=== PATIENT | female | born 1980 | race Caucasian/White ===

== ENCOUNTER → 2017-09-03 13:09 | Outpatient (CLI) | payer OTHER, SELFPAY ==
--- NOTE | 2017-09-03 13:14 | CT_ITS ---
STUDY: CT ABDOMEN WITH AND WITHOUT CONTRAST REASON FOR EXAM: Female, 36 years old. Elevated cortisol, hypertension, tachycardia, intermittent fevers, ? adrenal adenoma vs pheochromocytoma. Uncontrolled hypertension, prior cholecystectomy, lithotripsy. Adrenal protocol RADIATION DOSAGE (If Supplied By Facility): CTDIvol = ( 29.79 ) mGy, DLP = ( 2206.57 ) mGycm TECHNIQUE: Transaxial images were obtained pre and post I.V. administration of 100mL ml of Isovue 300, and no oral contrast. Sagittal and coronal images were reconstructed. Imaging was performed without, with and with delayed images Individualized dose optimization techniques were used for this CT. COMPARISON: Prior comparison studies are not available for review at this time. A prior CT abdomen and pelvis report February 04, 2010 describes normal adrenal glands. FINDINGS: The visualized lung bases are unremarkable. The visualized portions of the heart are within normal limits. Normal liver. Normal gallbladder and extrahepatic biliary system. Normal spleen. Normal pancreas. Normal bilateral adrenal glands. The adrenal glands are normal in size. There is no evidence of an adrenal nodule Normal right kidney. Normal left kidney. There is a punctate nonobstructing calculus associated with the mid to lower pole of the left kidney measuring approximately 2 mm. Although the study was not specifically performed to evaluate the renal arteries, on the images presented the renal arteries show no sign of stenosis and no irregularity to suggest fibromuscular dysplasia. Normal visualized stomach. Normal small intestine. Normal colon. There is non-visualization of the appendix. Normal abdominal aorta. Normal inferior vena cava. Normal retroperitoneum. Normal abdominal wall. Normal osseous structures. CT/Abdomen W/WO IV Contrast IMPRESSION: Normal unenhanced and enhanced CT of the abdomen. Normal appearance of adrenal glands. No retroperitoneal mass or other mass suspect for a pheochromocytoma. In the patient with biochemistry for pheochromocytoma MRI could be performed in an attempt to identify potential pheochromocytoma. The imaging should be obtained from the domes of the diaphragm all the way through the urinary bladder. They are characteristically solid hypervascular masses with high signal intensity on T2 images but a wide spectrum of imaging appearances may be encountered. 2 mm nonobstructing left renal calculus noted. Electronically Signed: Shaila Uriarte MD at 22:37 EDT Tel , Service support ,
== END ==
PROVIDERS: Family Provider Family Medicine; PCP Family Medicine; Visit Provider Family Medicine
DX: R00.0 Tachycardia, unspecified (principal); R03.0 Elevated blood-pressure reading, without diagnosis of hypertension; E27.0 Other adrenocortical overactivity
CPT/HCPCS: 74170; Q9967

== ENCOUNTER → 2017-09-07 08:02 | Outpatient (CLI) | payer OTHER, SELFPAY ==
[2017-09-07 12:13] LABS: Cholesterol 205 mg/dL (200); High Density Lipoprotein 47 mg/dL; Prolactin 5.9 ng/mL; Triglycerides 177 mg/dL; Very Low Density Lipoprotein 35 mg/dL (5-40)
[2017-09-07 12:18] LABS: Hemoglobin A1c 5.3 % (4.2-6.3)
[2017-09-08 09:10] LABS: Insulin 26.6 mU/L (2.6-37.6)
== END ==
PROVIDERS: Family Provider Family Medicine; PCP Family Medicine; Visit Provider Family Medicine
DX: Z00.00 Encounter for general adult medical examination without abnormal findings (principal); R73.01 Impaired fasting glucose; R51 Headache; E27.0 Other adrenocortical overactivity
CPT/HCPCS: 36415; 80061; 82533; 83036; 83525; 84146

== ENCOUNTER 2018-06-14 23:20 | Emergency (ER) | payer OTHER, SELFPAY ==
[2018-06-14 23:20] VITALS: BP 158/97; PULSE 99; RESP 18; TEMP 36.9; O2SAT 100; BMI 31.9
[2018-06-14 23:31] VITALS: PULSE 98; RESP 14
--- NOTE | 2018-06-14 23:31 | EKG12_ITS ---
Test Reason : PALPS Blood Pressure : / mmHG Vent. Rate : 094 BPM Atrial Rate : 094 BPM P-R Int : 176 ms QRS Dur : 098 ms QT Int : 368 ms P-R-T Axes : 059 -21 031 degrees QTc Int : 460 ms Normal sinus rhythm Possible Left atrial enlargement Incomplete right bundle branch block Borderline ECG Confirmed by ANGEL CARLOS, PARAMJIT ([id number]), material expeditor ALCON HAMILTON ([id number]) on 06/16/2018 1:57:03 PM Referred By: MAMADOU Confirmed By:PARAMJIT ORTIZ MD
--- NOTE | 2018-06-14 23:35 | RAD_ITS ---
STUDY: X-RAY CHEST REASON FOR EXAM: Female, 37 years old. Palpitations TECHNIQUE: 1 view COMPARISON: 08/24/2013 FINDINGS: The lungs are clear and expanded. There is no demonstrated pleural abnormality. Normal size heart. Normal mediastinum and trino. Normal visualized pulmonary arteries. Normal visualized aortic arch and descending thoracic aorta. Normal visualized thoracic spine. Normal visualized ribs, clavicles, and shoulders. There is no demonstrated abnormality of the visualized soft tissue structures of the upper abdomen. RAD/Chest 1 View (Portable) IMPRESSION: Normal x-ray examination of the chest. No acute findings in the lungs Electronically Signed: London Scanlon MD at 0:57 EST Tel , Service support ,
--- NOTE | 2018-06-14 23:45 | EKG12_ITS ---
Test Reason : Blood Pressure : / mmHG Vent. Rate : 106 BPM Atrial Rate : 106 BPM P-R Int : 168 ms QRS Dur : 094 ms QT Int : 356 ms P-R-T Axes : 055 -31 032 degrees QTc Int : 472 ms Sinus tachycardia Possible Left atrial enlargement Left axis deviation Abnormal ECG Confirmed by ANGEL CARLOS, PARAMJIT ([id number]), book editor ALCON HAMILTON ([id number]) on 06/16/2018 2:04:02 PM Referred By: MAMADOU Confirmed By:PARAMJIT ORTIZ MD
[2018-06-15] MEDS: 0.9% Normal Saline 1,000 ML 1000 ML IV (00:05)
[2018-06-15 00:10] LABS: Absolute Lymphocyte Count 4.22 X10^3/ul (0.83-4.51); Basophil# 0.02 X10^3/uL; Basophil% 0.1 % (0-1); Eosinophil# 0.29 X10^3/uL; Eosinophils% 2.2 % (0-5); Hematocrit 40.8 % (37-47); Hemoglobin 14.3 g/dl (12.0-15.0); Lymphocyte # 4.22 X10^3/ul (4.0); Lymphocyte % 31.5 % (19-41); Mean Corpuscular Volume 85.7 fL (81-99); Mean Platelet Vol. 9.1 fl (6.2-12.0); Monocyte# 0.79 X10^3/uL; Monocyte% 5.9 % (0-10); Neutrophil # 8.02 X10^3/uL (2.7-7.7); Neutrophil % 59.9 % (47-70); POSITIVE COUNT NO; POSITIVE DIFFERENTIAL NO; POSITIVE MORPHOLOGY NO; Platelet Count 284 K/mm3 (150-450); RBC Distribution Width CV 13.1 % (11.6-14.6); RBC Distribution Width SD 40.5 fl (35.1-43.9); Red Blood Count 4.76 M/mm3 (4.2-5.4); White Blood Count 13.4 K/mm3 (4.4-11.0)
[2018-06-15 00:22] LABS: D-Dimer Quantitative (DVT/PE) < 0.27 FEU/ug/m (0.27-0.49)
[2018-06-15 00:33] LABS: Anion Gap 10 (5-15); BUN 16 mg/dL (7-18); BUN/Creat Ratio 24.2 RATIO (10-20); Calcium,Total 8.8 mg/dL (8.5-10.1); Chloride 106 mmol/L (98-107); Creatinine, Serum 0.66 mg/dL (0.55-1.02); EST Glomerular Filtration Rate 106 mL/min (>60); Est Glom Filt Rate - Afr Amer 128 mL/min (>60); Estimated Creatinine Clearance 115.44 ml/min; Glucose 91 mg/dL (74-106); Magnesium 1.7 mg/dL (1.6-2.6); Potassium 3.6 mmol/L (3.5-5.1); Sodium Level 139 mmol/L (136-145); Thyroid Stim Hormone (TSH) 2.66 uIU/mL (0.358-3.74)
[2018-06-15 00:36] VITALS: BP 147/93; PULSE 98; RESP 16; O2SAT 97
[2018-06-15 00:48] LABS: Pregnancy, Serum, hCG Quali. NEGATIVE Negative (0-9 Nonpreg)
--- NOTE | 2018-06-15 01:33 | ED.VISSUMM ---
- ER Visit Summary Date of Service: 06/15/18 Chief Complaint: Palpitations History of Present Illness: The patient is a [address] Macario. Reports that approximately 1 hour ago while at rest she had the onset of palpitations. States that she checked her blood pressure on the machine she has at home it was 160/105. She states that her heart rate was 165 at max. She reports the palpitations as an irregular beat. States that she did not have any chest pain. She felt very lightheaded as though she is going to pass out. She was nauseated with this. She denies any vomiting. She was diaphoretic and short of breath. Patient reports that she has had this multiple times in the past. They have not been unable to find an etiology of this. Physical Examination: Vitals: Stable. Afebrile. General: Well-nourished and well-developed. Head: Normocephalic atraumatic. Neck: Supple, no lymphadenopathy. No JVD. Nontender. Cardiovascular: Regular rate and rhythm. No murmurs. Respiratory: No respiratory distress. Clear to auscultation bilaterally. Abdominal: Soft, nontender, nondistended, normal bowel sounds. No guarding, rebound, or peritoneal signs. Back: Nontender. Extremities: Nontender, no edema. Skin: Normal color, no rash. Neurologic: Alert and oriented ?3. Cranial nerves II through XII are intact. Normal strength and sensation. Psych: Normal affect. Test Results: EKG is sinus at [address] changes. There is no old EKG for comparison. Patient had an episode of palpitations emergency department. Her repeat EKG is sinus tachycardia 106 with no ischemic changes. Troponin is negative. D-dimer is negative. test is negative. Chem-7 is more for BUN/creatinine ratio 24.2. CBC is more for white count 13.4 with normal differential. TSH is 2.66. Magnesium is 1.7. Chest x-ray is normal. Emergency Department Course and Treatment: Patient is resting comfortably in emerge department. She did have an episode of palpitations and on the monitor she was in sinus tachycardia with a rate at highest of 130s. However, when she is resting her heart rate is in the 80s. Treatment Plan: I had a prolonged discussion with patient about her symptoms. I did discuss the fact that if her heart rate was in the 160s that she may have had an episode of paroxysmal atrial fibrillation. However, she is in sinus rhythm now and I do not feel that admission to the hospital is indicated. She will be discharged instructions to follow-up Dr. Macario and Dr. Wilburn as soon as possible. She instructed to return to emerge department for any chest pain or worsening palpitations. Disposition: To home in improved and stable condition. Impression: 1. Palpitations. 2. Sinus tachycardia. This note was generated with [employer] dictation software. It may contain incorrect words, spelling, and punctuation that were not noted in review of the chart prior to signing ED Disposition - Plan for ED Patient: Disposition: Home or Assisted Living Chief Complaint: Palpitations Instructions: ED Palpitations Referrals: Rodo Macario DO [Primary Care Provider] - As soon as possible Murtaza Ramos MD [STAFF PHYSICIAN] - As soon as possible
[2018-06-15 01:38] VITALS: BP 142/101; PULSE 85; RESP 14; O2SAT 95
== END 2018-06-15 01:41 | disposition home or self-care (01) ==
PROVIDERS: Emergency Provider Emergency Medicine; Family Provider Family Medicine; PCP Family Medicine
DX: R00.2 Palpitations (principal); R00.0 Tachycardia, unspecified; R42 Dizziness and giddiness; R11.0 Nausea; R61 Generalized hyperhidrosis; R06.00 Dyspnea, unspecified; R51 Headache; F41.9 Anxiety disorder, unspecified; F32.9 Major depressive disorder, single episode, unspecified; M79.7 Fibromyalgia; G89.4 Chronic pain syndrome; E28.2 Polycystic ovarian syndrome; Z87.442 Personal history of urinary calculi; F17.200 Nicotine dependence, unspecified, uncomplicated
CPT/HCPCS: 71045; 80048; 83735; 84443; 84484; 84703; 85025; 85379; 93005; 96360; 96361; 99284; J7030

== ENCOUNTER → 2018-06-16 13:45 | Outpatient (CLI) | payer OTHER, SELFPAY ==
[2018-06-14 23:20] VITALS: BMI 31.9
--- NOTE | 2018-06-16 13:48 | ECHOD_ITS ---
Reason For Study: palpitations Procedure This was a 2D Doppler, Color Flow transthoracic echocardiogram. The study was technically difficult. Due to scar tissue from breast reduction. Contrast injection was performed. Exam performed in department. Left Ventricle Normal LV size. Left ventricular systolic function is normal. The estimated ejection fraction is 70 %. Transmitral doppler flow suggestive of impaired relaxation of left ventricle. No regional wall motion abnormalities noted. Right Ventricle Normal RV size. Normal systolic function. Atria Normal left atrium. Normal right atrium. No doppler evidence for ASD. Mitral Valve There is no mitral annular calcification. Normal mitral valve. Tricuspid Valve Normal tricuspid valve. Aortic Valve The aortic valve is not well visualized. Pulmonic Valve The pulmonic valve is not well visualized. Trivial pulmonic valve insufficiency. Great Vessels Normal sized aortic root. Pericardium/Pleural No pericardial effusion. Medication 22 gauge I.V. with prn adaptor inserted into left arm. Diluted definity 3.0ml given slow IV push to enhance endocardial definition. MMode/2D Measurements & Calculations LVIDd: 3.6 cm IVSd: 1.3 cm Ao root diam: 3.3 cm LVIDs: 2.3 cm LVPWd: 0.98 cm LA dimension: 3.0 cm RVDd: 2.7 cm FS: 35.6 % LAV(MOD-bp): 50.5 ml LA A4 area: 15.3 cm2 RA A4 area: 11.3 cm2 LAV(MOD-bp) Indexed: 24.2 ml/m2 LAV(MOD-sp2): 50.5 ml LAV(MOD-sp4): 43.4 ml Time Measurements MV dec time: 0.21 sec Doppler Measurements & Calculations MV E max tommy: 79.1 cm/sec Lat Peak E' Tommy: 7.9 cm/sec Med Peak E' Tommy: 8.4 cm/sec MV A max tommy: 92.4 cm/sec E/E' lat: 10.0 E/E' med: 9.4 MV E/A: 0.86 Ao V2 max: 159.1 cm/sec LV V1 max: 129.8 cm/sec PA V2 max: 105.2 cm/sec Ao max P.1 mmHg LV V1 max P.8 mmHg PI dec slope: 183.8 cm/sec2 Interpretation Summary The study was technically difficult. Contrast injection was performed. Left ventricular systolic function is normal. The estimated ejection fraction is 70 %. Trivial pulmonic valve insufficiency. Transmitral doppler flow suggestive of impaired relaxation of left ventricle Ordering Physician: Rodo Macario Referring Physician: Rodo Macario Performed By: Alina Nick, ELLE, RVT
== END ==
PROVIDERS: Family Provider Family Medicine; PCP Family Medicine; Referring Provider Family Medicine; Visit Provider Family Medicine
DX: R00.0 Tachycardia, unspecified (principal); R00.2 Palpitations
CPT/HCPCS: 93306; Q9957; A4216; C8929

== ENCOUNTER 2018-06-21 01:44 | Observation (INO) | payer OTHER, SELFPAY ==
[2018-06-21] VITALS (10 sets, daily range): BP systolic 136–172; BP diastolic 74–118; PULSE 87–115; RESP 14–22; TEMP 36.7–36.9; O2SAT 93–98; BMI 32.0; BMI 31.8
--- NOTE | 2018-06-21 01:58 | EKG12_ITS ---
Test Reason : HYPERTENSION Blood Pressure : / mmHG Vent. Rate : 094 BPM Atrial Rate : 094 BPM P-R Int : 150 ms QRS Dur : 098 ms QT Int : 382 ms P-R-T Axes : 059 -21 017 degrees QTc Int : 477 ms Normal sinus rhythm Leftward axis Poor R wave progression Confirmed by ANGEL CARLOS, PARAMJIT ([id number]), manager editorial ALCON HAMILTON ([id number]) on 06/22/2018 3:28:59 PM Referred By: Rodo Macario Confirmed By:PARAMJIT ORTIZ MD
--- NOTE | 2018-06-21 01:58 | CT_ITS ---
HISTORY: PT STATED HYPERTENSION AND TACHYCARDIA, FEARS SHE MAY HAVE A TUMOR TECHNIQUE: Multiple axial images were obtained of the brain without intravenous contrast. A radiation dose optimization technique was used for this scan. IV Contrast dosage and agent: None. COMPARISON: None FINDINGS: Normal ventricles. Normal rincon-white matter differentiation. No intracranial mass, hemorrhage, or acute intracranial disease. Posterior fossa structures are unremarkable. No suspicious extra-axial fluid collection. Mild mucosal thickening and mild opacification of the ethmoid air cells, primarily anterior ethmoids and left sphenoid minor mucosal thickening The mastoids and middle ear cavities appear clear. CT/Brain/Head without Contrast IMPRESSION: 1. Normal CT brain without contrast. 2. Mild paranasal sinus disease. Individualized dose optimization techniques were used for this CT. at 0307 Reported and signed by: Jaswinder Chino MD Electronically Signed: Jaswinder Chino, at 3:06 EST Tel , Service support ,
[2018-06-21 02:15] LABS: Bacteria 0 SEEN /hpf (None Seen); Color, Urine Yellow (Yellow); Glucose, Dipstick Normal (Normal); Ketone-Dipstick 50 mg/dl (Negative); Leukocyte Esterase-Dipstick Negative /ul (Negative); Mucous, Urine 0 SEEN /hpf (<or=2+); Nitrite-Dipstick Negative (Negative); Occult Blood-Urine Negative /ul (Negative); Protein-Dipstick Negative (Negative); Red Blood Cells-Urine 0 SEEN /hpf (0-5); Squamous Epithelial Cells - UA 0 SEEN /hpf (5-10); Urine Bilirubin Dipstick Negative (Negative); Urine Clarity Clear (Clear); Urine Urobilinogen Normal (Normal); White Blood Cells 0 SEEN /hpf (0-5)
[2018-06-21 02:16] LABS: Absolute Lymphocyte Count 4.53 X10^3/ul (0.83-4.51); Absolute Neutrophil Count 7.2 X10^3/uL (2.0-7.7); Basophil# 0.03 X10^3/uL; Basophil% 0.2 % (0-1); Eosinophil# 0.25 X10^3/uL; Eosinophils% 1.9 % (0-5); Hematocrit 42.3 % (37-47); Hemoglobin 14.7 g/dl (12.0-15.0); Lymphocyte # 4.53 X10^3/ul (4.0); Lymphocyte % 34.2 % (19-41); Mean Corp Hgb Conc 34.8 g/gl (32-36); Mean Corpuscular Hgb 30.1 pg (27.0-32.0); Mean Corpuscular Volume 86.7 fL (81-99); Mean Platelet Vol. 9.2 fl (6.2-12.0); Monocyte# 1.22 X10^3/uL; Monocyte% 9.2 % (0-10); Neutrophil # 7.16 X10^3/uL (2.7-7.7); Neutrophil % 54.2 % (47-70); Platelet Count 298 K/mm3 (150-450); RBC Distribution Width CV 13.1 % (11.6-14.6); RBC Distribution Width SD 41.8 fl (35.1-43.9); Red Blood Count 4.88 M/mm3 (4.2-5.4); White Blood Count 13.2 K/mm3 (4.4-11.0)
[2018-06-21 02:17] LABS: POSITIVE COUNT NO; POSITIVE DIFFERENTIAL NO; POSITIVE MORPHOLOGY NO
--- NOTE | 2018-06-21 02:17 | ED.VISSUMM ---
- ER Visit Summary Date of Service: 06/21/18 Chief Complaint: High blood pressure, heart racing, chest pain History of Present Illness: The patient is a 37 F presents to the emergency department multiple complaints. The patient is otherwise healthy. She does have a history of chronic pain disorder and does take medication for that. She states over the past few weeks, she has been having these bouts where she gets acutely flushed, she will be lightheaded, her heart will be racing, and she feels as if she is going to pass out. She states that she will take her blood pressure, and it will be markedly elevated in the 170 systolic. She states that she is also taken her heart rate and it has been 150-160. The patient was actually seen here on the second of this month. At that time, she had a rather negative workup. She has been undergoing outpatient workup for questionable pheochromocytoma. She had an echo done yesterday. She is scheduled for Holter monitor. She states when the symptoms come, they only last about 30 seconds to a minute, but she states she does feel like she is going to pass out. Physical Examination: Vital signs reviewed General: Well-nourished, well-developed Head: Normocephalic, atraumatic Eyes: Pupils equal and reactive, extraocular muscles intact Neck, supple, no lymphadenopathy Heart: Regular rate and rhythm Respiratory: No distress, clear bilaterally Abdomen: Soft, nontender, nondistended, no peritoneal signs Back: Nontender Extremities: Nontender, no edema, no cords Skin: Normal color no rash Neuro: Alert and oriented, no focal or lateralizing deficits Test Results: [] Emergency Department Course and Treatment: The patient will have intermittent swings where she becomes acutely tachycardic and hypertensive. This does seem very consistent with pheochromocytoma. She will get flushed and have heart rates that will race into the 150s. It does appear to be a sinus rhythm. The patient did have 2 episodes while in the emergency department where she became acutely hypertensive and tachycardic. Her labs were obtained and were unremarkable. I obtained a head CT given her headache. This is also unremarkable. EKG showed sinus rhythm without acute ischemia. The patient has had increasing frequency of these complaints. She is been near syncopal. I do feel that the safest thing would be to do an observational admission for cardiac monitoring and treatment of her blood pressure. The patient was discussed with the hospitalist. Treatment Plan: [] Disposition: Admission Impression: 1. Hypertensive urgency 2. Tachycardia This note was generated with [employer] dictation software. It may contain incorrect words, spelling, and punctuation that were not noted in review of the chart prior to signing ED Disposition - Plan for ED Patient: Chief Complaint: Hypertension Referrals: Rodo Macario DO [Primary Care Provider] -
[2018-06-21 02:37] LABS: ALB/GLOB Ratio 1.3 RATIO (0.9-2.4); AST(SGOT) 23 U/L (15-37); Alanine Aminotransfer ALT/SGPT 51 U/L (13-56); Albumin, Serum 4.3 g/dL (3.2-5.0); Alkaline Phosphatase 67 U/L (45-117); Anion Gap 13 (5-15); BUN 11 mg/dL (7-18); BUN/Creat Ratio 20.9 RATIO (10-20); Calcium,Total 8.8 mg/dL (8.5-10.1); Chloride 103 mmol/L (98-107); Creatinine, Serum 0.53 mg/dL (0.55-1.02); EST Glomerular Filtration Rate 137 mL/min (>60); Est Glom Filt Rate - Afr Amer 166 mL/min (>60); Estimated Creatinine Clearance 143.76 ml/min; Globulin 3.2 g/dL (2.2-4.2); Glucose 103 mg/dL (74-106); Potassium 3.3 mmol/L (3.5-5.1); Protein, Total 7.5 g/dL (6.4-8.2); Sodium Level 138 mmol/L (136-145); Thyroid Stim Hormone (TSH) 0.99 uIU/mL (0.358-3.74)
[2018-06-21] MEDS: LORazepam 2 MG/ML Syringe 1 MG IV (03:23)
--- NOTE | 2018-06-21 03:46 | PCM.HP.STD ---
Problem List (1) Tachycardia Status: Acute (2) Elevated blood pressure reading without diagnosis of hypertension Status: Acute (3) Rapid palpitations Status: Acute History of Present Illness Date of Admission: 06/21/18 Chief Complaint: tachycardia and hypertensive The patient is a 37 year old female patient presents to the ER for the second time this month with a similar complaint of rapid heart rate and elevated blood pressure. She states she has been having bouts of tachycardia that are increasing in frequency and duration. The sensation are leaving her feeling fatigued and anxious. She has a history of anxiety and fibromyalgia for which she had been taking a total of 4mg xanax daily and norco 10/325 QID. Today she was switched from her xanax to klonopin. There has been some concern about pheochromocytoma but original ct scan one year ago was negative. Echo done yesterday result is pending. With rest she is able to recover to normotensive level but she remains tachycardic at baseline. She denies chest pain at this time. She will be admitted for further observation and workup. Past Medical History Medical History: Medical History (Last Updated 06/15/18 @ 16:48 by Ambar García) Tachycardia (Acute) R00.0 Anxiety F41.9 Bipolar disorder F31.9 Chronic pain syndrome G89.4 Fibromyalgia M79.7 GERD (gastroesophageal reflux disease) K21.9 Madhu de la Tourette syndrome F95.2 IBS (irritable bowel syndrome) K58.9 Marijuana use F12.90 medical marijuana use PTSD (post-traumatic stress disorder) F43.10 Recurrent nephrolithiasis N20.0 Allergies adhesive tape Adverse Reaction (Verified 06/21/18 01:50) Unknown baclofen Adverse Reaction (Verified 06/21/18 01:50) Unknown pregabalin [From Lyrica] Adverse Reaction (Verified 06/21/18 01:50) Unknown promethazine Adverse Reaction (Verified 06/21/18 01:50) Unknown Home Medications: Ambulatory Orders Medication Instructions Recorded Hydrocodone/Acetaminophen [Vicodin 1 each PO 4X/DAY 06/14/18 Hp 10-300 mg Tablet] Promethazine HCl 25 mg PO BID PRN PRN 06/14/18 Clonazepam 1 mg PO TID 06/21/18 Surgical History: Surgical History (Last Updated 06/15/18 @ 16:48 by Ambar García) H/O abdominoplasty Z98.890 H/O bilateral breast reduction surgery Z98.890 History of lithotripsy Z98.890 Hx of cholecystectomy Z90.49 Smoking Status: Never smoker - *Family History Maternal Family History: Family History (Last Updated 06/15/18 @ 16:48 by Ambar García) Father Hypertension History Items: No pertinent history Review of Systems Constitutional: Denies: Chills, Fever, Weight Change HEENT: Denies: Head Aches, Sinus Congestion, Sinus Drainage Cardiovascular: Reports: Light Headedness, Palpitations. Denies: Chest Pain Respiratory: Denies: Cough, Shortness of breath at rest, Sputum production Gastrointestinal: Denies: Abdominal Pain, Nausea, Vomiting Genitourinary: Denies: Dysuria Musculoskeletal: Denies: Joint Pain, Joint Tenderness Skin: Denies: Rash, Wounds Neurological: Denies: Numbness, Tingling, Focal weakness Psychiatric: Reports: Anxiety. Denies: Depression, Homicidal Ideations, Suicidal Ideations Hematologic/ Lymphatic: Denies: Easy Bruising, Easy Bleeding VTE Information - Inpt Only VTE Present on Admission: No VTE Mechan Device Prophylaxis: None VTE Pharm Prophylaxis ordered?: Yes - Physical Exam General: Alert, Oriented x3, Cooperative HEENT: Atraumatic, Normocephalic Neck: Supple, Negative Carotid Bruits Lungs: Clear to auscultation, Normal air movement, No rhonchi, No wheeze, No rales Cardiovascular: Regular rate, Normal S1, Normal S2, No murmurs, Tachycardic Abdomen: Bowel Sounds Present, Soft, Non Tender Extremities: No edema, Capillary Refill Less than 3 Seconds Skin: No rashes Musculoskeletal: No Tenderness to Palpation of Joints or Extremities Neurological: Neuro grossly intact Psych/Mental Status: Normal Affect, Appropriate Vital Signs Temp Pulse Resp BP Pulse Ox 98.4 F 100 16 155/109 H 96 06/21/18 01:45 06/21/18 03:26 06/21/18 03:26 06/21/18 03:26 06/21/18 03:26 Oxygen Delivery Method Room Air Weight: 210 lb 12.191 oz Body Mass Index (BMI) 32.0 Laboratory Tests Past 24 Hrs 06/21/18 06/21/18 06/21/18 02:03 02:03 02:10 WBC 13.2 H RBC 4.88 Hgb 14.7 Hct 42.3 MCV 86.7 MCH 30.1 MCHC 34.8 RDW 13.1 RDW Differential 41.8 Plt Count 298 MPV 9.2 Immature Gran % (Auto) 0.300 Neut % (Auto) 54.2 Lymph % (Auto) 34.2 [place] % (Auto) 9.2 Eos % (Auto) 1.9 Baso % (Auto) 0.2 Absolute Neuts (auto) 7.2 Absolute Lymphs (auto) 4.53 H Total Counted Not Reportable Sodium 138 Potassium 3.3 L Chloride 103 Carbon Dioxide 22.0 Anion Gap 13 BUN 11 Creatinine 0.53 L Estim Creat Clear Calc 143.76 Est GFR (MDRD) Af Amer 166 Est GFR (MDRD) Non-Af 137 BUN/Creatinine Ratio 20.9 H Glucose 103 Calcium 8.8 Total Bilirubin 0.80 AST 23 ALT 51 Alkaline Phosphatase 67 Troponin I < 0.015 Total Protein 7.5 Albumin 4.3 Globulin 3.2 Albumin/Globulin Ratio 1.3 TSH 0.99 Urine Color Yellow Urine Clarity Clear Urine pH 6.0 Ur Specific [place] 1.010 Urine Protein Negative Urine Glucose (UA) Normal Urine Ketones 50 H Urine Occult Blood Negative Urine Nitrite Negative Urine Bilirubin Negative Urine Urobilinogen Normal Ur Leukocyte Esterase Negative Urine RBC 0 SEEN Urine WBC 0 SEEN Ur Squamous Epith Cells 0 SEEN Urine Bacteria 0 SEEN Urine Mucus 0 SEEN Assessment/Plan All Active Problems (Last Updated 06/15/18 @ 16:48 by Ambar García) Tachycardia (Acute) Elevated blood pressure reading without diagnosis of hypertension (Acute) Rapid palpitations (Acute) Plan -admit for observation to PCU. Collect 24 hr urine for metanephrines, am cortisol level. bmp,cbc,magnesium level. TSH was normal. continue telemetry. Consider beta blockade should recurrence happens, review echo report when available. - continue home medications for chronic pain and anxiety disorder. - LMWH for DVT prophylaxis. Code Visit OBSV E&M: [id number] Initial observation care L2
[2018-06-21 05:26] LABS: Hematocrit 41.2 % (37-47); Hemoglobin 13.9 g/dl (12.0-15.0); Mean Corp Hgb Conc 33.7 g/gl (32-36); Mean Corpuscular Hgb 29.6 pg (27.0-32.0); Mean Corpuscular Volume 87.7 fL (81-99); Mean Platelet Vol. 9.2 fl (6.2-12.0); Platelet Count 266 K/mm3 (150-450); RBC Distribution Width CV 13.1 % (11.6-14.6); RBC Distribution Width SD 42.1 fl (35.1-43.9); White Blood Count 11.5 K/mm3 (4.4-11.0)
[2018-06-21] MEDS: LORazepam 2 MG/ML Syringe 0.5 MG IV (05:27)
[2018-06-21] MEDS: 0.9% NaCl Peripheral Flush Adult/Peds IV (05:28)
[2018-06-21 05:38] LABS: Scan Indicated on CBC? Y/N NO
[2018-06-21 05:47] LABS: Anion Gap 10 (5-15); BUN 9 mg/dL (7-18); BUN/Creat Ratio 18.4 RATIO (10-20); Calcium,Total 8.6 mg/dL (8.5-10.1); Chloride 105 mmol/L (98-107); Creatinine, Serum 0.49 mg/dL (0.55-1.02); EST Glomerular Filtration Rate 149 mL/min (>60); Est Glom Filt Rate - Afr Amer 181 mL/min (>60); Estimated Creatinine Clearance 155.49 ml/min; Glucose 88 mg/dL (74-106); Magnesium 1.8 mg/dL (1.6-2.6); Potassium 3.5 mmol/L (3.5-5.1); Sodium Level 138 mmol/L (136-145)
[2018-06-21] MEDS: HYDROcodone Bitartrate/Apap 5/325 Tablet PO ×2 (08:25→13:09)
[2018-06-21] MEDS: clonazePAM 1 MG Tablet PO (08:26)
[2018-06-21] MEDS: Lisinopril 10 MG Tablet PO (09:37)
--- NOTE | 2018-06-21 12:16 | DCINST_ITS ---
You will use the following diet at home:: No restrictions Discharge Activity: Return to Normal Activity Call your doctor if you observe: Shortness of breath, Dizziness, Fainting spells, Chest pain Additional Instructions: We discussed tapering your previous xanax regimen at discharge. Please follow the recommendations below: Take 1mg every 8 hours for 5 days. Then 1mg every 12 hours for 5 days. Then 1mg daily for 5 days, then stop. You can then begin clonazepam 1mg NEEDED daily. Recommend follow up with counselor for help with anxiety. You were referred to behavioral health for anxiety management. Also do not recommend taking vicodin 4x/day as this can lead to rebound headaches and opioid dependence. If able, take as needed for pain. You were started on lisinpril 10mg daily for blood pressure control. You can continue to monitor your blood pressure at home, however would recommend only checking once in the morning and once in the evening and documenting these findings. Your brain CT, cortisol level and routine labwork was unremarkable. Allergies/Adverse Reactions: Allergies adhesive tape Adverse Reaction (Verified 06/21/18 01:50) Unknown baclofen Adverse Reaction (Verified 06/21/18 01:50) Unknown pregabalin [From Lyrica] Adverse Reaction (Verified 06/21/18 01:50) Unknown Medications to take at Discharge Hydrocodone/Acetaminophen [Vicodin Hp 10-300 mg Tablet] 10 mg PO 4X/DAY 06/14/18 Promethazine HCl 25 mg PO BID PRN PRN 06/14/18 Clonazepam 1 mg PO TID 06/21/18 Lisinopril [Zestril] 10 mg PO DAILY #30 tablet 06/21/18 The following prescriptions were given: Lisinopril [Zestril] 10 mg PO DAILY #30 tablet Primary Care Physician: Rodo Macario DO [Primary Care Provider] - Please follow up with your Primary Care Physician in: 1 Week Test Results: Test results from this visit will be discussed in further detail at your follow- up appointment, if applicable. Proposed Discharge Date: 06/21/18
--- NOTE | 2018-06-21 12:17 | PCM.DC.SUM ---
<Andria Aranda - Last Filed: 06/21/18 12:34> Discharge Date and Diagnosis Date of Admission: 06/21/18 Date of Discharge: 06/21/18 - Primary Discharge Diagnosis 1. Hypertension, new diagnosis 2. Anxiety disorder/PTSD 3. Chronic pain syndrome/fibromyalgia Hospital Course and Treatment Imaging Results: Diagnostic Data Brain CT 06/21/18 01:58 IMPRESSION: 1. Normal CT brain without contrast. 2. Mild paranasal sinus disease. Individualized dose optimization techniques were used for this CT. at 0307 Reported and signed by: Jaswinder Chino MD Electronically Signed: Jaswinder Chino, at 3:06 EST Tel , Service support , Operations: None Procedures: None Summary of Care Provided: The patient is a 37 year old F admitted 06/21/2018 due to tachycardia and hypertension. Patient reports intermittent episodes of increased heart rate and elevated blood pressure. She reports this is been ongoing for a few months, at least. She has a history of anxiety disorder/PTSD, fibromyalgia. She reports taking Xanax 4 times daily as well as Industry 4 times daily for the past few years. She does not follow with a psychiatrist or counselor. She states she has tried antidepressants and other non-benzo/narcotic regimens which have not worked for her or she reports she had adverse effects. Patient concerned that she may have a tumor, she reports outpatient workup for pheochromocytoma. CT of brain unremarkable. Random cortisol level unremarkable. 24-hour urine for metanephrines and 24-hour urine cortisol pending. Patient will continue 24-hour urine at discharge which will be completed tomorrow morning and follow-up results with primary care physician. ACTH level also pending. Patient was previously ordered a 24-hour Holter monitor which will be placed prior to discharge. Patient was started on lisinopril 10 mg daily for hypertension. She does not have a previous diagnosis of this. Pressure improved with addition of lisinopril. Discussed tapering previous xanax regimen at discharge. Patient given the following recommendations: Take 1mg every 8 hours for 5 days. Then 1mg every 12 hours for 5 days. Then 1mg daily for 5 days, then stop. She can then begin clonazepam 1mg NEEDED daily. Recommend follow up with counselor for help with anxiety. Patient referred to behavioral health for anxiety management. Also do not recommend taking vicodin 4x/day as this can lead to rebound headaches and opioid dependence. If able, take only as needed for pain. Patient reports she does want to wean off of benzodiazepines and is willing to take recommendations for doing so. General: Alert, Oriented x3, Cooperative HEENT: Atraumatic, Normocephalic Neck: Supple, Negative Carotid Bruits Lungs: Clear to auscultation, Normal air movement Cardiovascular: Regular rate, Normal S1, Normal S2, No murmurs, intermittent mild tachycardia Abdomen: Bowel Sounds Present, Soft, Non Tender Extremities: No edema, Capillary Refill Less than 3 Seconds Skin: No rashes, skin intact Musculoskeletal: No Tenderness to Palpation of Joints or Extremities Neurological: Neuro grossly intact Psych/Mental Status: Appears anxious, restless Patient seen and examined prior to discharge. Physical assessment as noted above. Patient is stable for discharge with follow up recommendations as noted above. This patient was seen by MERCEDES Moran under the supervision of Dr. Guadalupe. - Physical Exam Vital Signs Temp Pulse Resp BP Pulse Ox 98.4 F 87 15 136/74 H 97 06/21/18 11:52 06/21/18 11:52 06/21/18 11:52 06/21/18 11:52 06/21/18 11:52 Oxygen Delivery Method Room Air Weight: 209 lb 3.499 oz Body Mass Index (BMI) 31.8 Intake and Output for Last 24 Hours 06/19/18 06/20/18 06/21/18 23:59 23:59 23:59 Intake Total 450 / 450 Balance 450 / 450 Laboratory Tests Past 24 Hrs 06/21/18 06/21/18 06/21/18 02:03 02:03 02:10 WBC 13.2 H RBC 4.88 Hgb 14.7 Hct 42.3 MCV 86.7 MCH 30.1 MCHC 34.8 RDW 13.1 RDW Differential 41.8 Plt Count 298 MPV 9.2 Immature Gran % (Auto) 0.300 Neut % (Auto) 54.2 Lymph % (Auto) 34.2 [place] % (Auto) 9.2 Eos % (Auto) 1.9 Baso % (Auto) 0.2 Absolute Neuts (auto) 7.2 Absolute Lymphs (auto) 4.53 H Total Counted Not Reportable Sodium 138 Potassium 3.3 L Chloride 103 Carbon Dioxide 22.0 Anion Gap 13 BUN 11 Creatinine 0.53 L Estim Creat Clear Calc 143.76 Est GFR (MDRD) Af Amer 166 Est GFR (MDRD) Non-Af 137 BUN/Creatinine Ratio 20.9 H Glucose 103 Calcium 8.8 Magnesium Total Bilirubin 0.80 AST 23 ALT 51 Alkaline Phosphatase 67 Troponin I < 0.015 Total Protein 7.5 Albumin 4.3 Globulin 3.2 Albumin/Globulin Ratio 1.3 TSH 0.99 Cortisol ACTH Urine Color Yellow Urine Clarity Clear Urine pH 6.0 Ur Specific [place] 1.010 Urine Protein Negative Urine Glucose (UA) Normal Urine Ketones 50 H Urine Occult Blood Negative Urine Nitrite Negative Urine Bilirubin Negative Urine Urobilinogen Normal Ur Leukocyte Esterase Negative Urine RBC 0 SEEN Urine WBC 0 SEEN Ur Squamous Epith Cells 0 SEEN Urine Bacteria 0 SEEN Urine Mucus 0 SEEN Ur Free Cortisol 24 Hr Urine Free Cortisol Urine Metanephrine U Metanephrines 24 Hr U Normetanephrine U Normetanephrine 24h 06/21/18 06/21/18 06/21/18 04:45 05:02 05:02 WBC RBC Hgb Hct MCV MCH MCHC RDW RDW Differential Plt Count MPV Immature Gran % (Auto) Neut % (Auto) Lymph % (Auto) [place] % (Auto) Eos % (Auto) Baso % (Auto) Absolute Neuts (auto) Absolute Lymphs (auto) Total Counted Sodium 138 Potassium 3.5 Chloride 105 Carbon Dioxide 23.0 Anion Gap 10 BUN 9 Creatinine 0.49 L Estim Creat Clear Calc 155.49 Est GFR (MDRD) Af Amer 181 Est GFR (MDRD) Non-Af 149 BUN/Creatinine Ratio 18.4 Glucose 88 Calcium 8.6 Magnesium 1.8 Total Bilirubin AST ALT Alkaline Phosphatase Troponin I Total Protein Albumin Globulin Albumin/Globulin Ratio TSH Cortisol 8.50 ACTH Pending Urine Color Urine Clarity Urine pH Ur Specific [place] Urine Protein Urine Glucose (UA) Urine Ketones Urine Occult Blood Urine Nitrite Urine Bilirubin Urine Urobilinogen Ur Leukocyte Esterase Urine RBC Urine WBC Ur Squamous Epith Cells Urine Bacteria Urine Mucus Ur Free Cortisol 24 Hr Pending Urine Free Cortisol Pending Urine Metanephrine Pending U Metanephrines 24 Hr Pending U Normetanephrine Pending U Normetanephrine 24h Pending 06/21/18 05:02 WBC 11.5 H RBC 4.70 Hgb 13.9 Hct 41.2 MCV 87.7 MCH 29.6 MCHC 33.7 RDW 13.1 RDW Differential 42.1 Plt Count 266 MPV 9.2 Immature Gran % (Auto) Neut % (Auto) Lymph % (Auto) [place] % (Auto) Eos % (Auto) Baso % (Auto) Absolute Neuts (auto) Absolute Lymphs (auto) Total Counted Sodium Potassium Chloride Carbon Dioxide Anion Gap BUN Creatinine Estim Creat Clear Calc Est GFR (MDRD) Af Amer Est GFR (MDRD) Non-Af BUN/Creatinine Ratio Glucose Calcium Magnesium Total Bilirubin AST ALT Alkaline Phosphatase Troponin I Total Protein Albumin Globulin Albumin/Globulin Ratio TSH Cortisol ACTH Urine Color Urine Clarity Urine pH Ur Specific [place] Urine Protein Urine Glucose (UA) Urine Ketones Urine Occult Blood Urine Nitrite Urine Bilirubin Urine Urobilinogen Ur Leukocyte Esterase Urine RBC Urine WBC Ur Squamous Epith Cells Urine Bacteria Urine Mucus Ur Free Cortisol 24 Hr Urine Free Cortisol Urine Metanephrine U Metanephrines 24 Hr U Normetanephrine U Normetanephrine 24h Discharge Diet: No Restrictions Discharge Activity: Return to Normal Activity Call your doctor if you observe: Shortness of breath, Dizziness, Fainting spells, Chest pain Home Medications: Medications to take at Discharge Hydrocodone/Acetaminophen [Vicodin Hp 10-300 mg Tablet] 10 mg PO 4X/DAY 06/14/18 Promethazine HCl 25 mg PO BID PRN PRN 06/14/18 Clonazepam 1 mg PO TID 06/21/18 Lisinopril [Zestril] 10 mg PO DAILY #30 tablet 06/21/18 Following Prescrptions Were Given to Patient: Lisinopril [Zestril] 10 mg PO DAILY #30 tablet Primary Care Physician: Rodo Macario DO [Primary Care Provider] - Please follow up with your Primary Care Physician in: 1 Week Disposition: Home Minutes spent on discharge:: 35 Patient Condition:: Stable Medical Necessity - Tobacco Use Smoking Status: Never smoker Meaningful Use Info Meaningful Use Diagnoses (Choose all that apply): None applicable <Becca Guadalupe E - Last Filed: 06/21/18 13:51> Hospital Course and Treatment Summary of Care Provided: Hospitalist note: Discharge summary above reviewed as well as physical examination and I agree with above discharge plan. Patient was admitted because of elevated blood pressure and tachycardia as well as chest discomfort. Upon arrival to ER, blood pressure was 172/118 consistent with hypertensive urgency without evidence of endorgan damage. Her heart rate was around 115 upon arrival to ER. EKG revealed normal sinus rhythm without evidence of acute ischemic changes or cardiac arrhythmias. Her troponin was negative. Her routine blood work was remarkable for mild leukocytosis as well as mild hypokalemia and both with normalized on repeat CBC and BMP. The patient has been having intermittent episodes of sudden onset increased heart rate and elevated blood pressure over the last several months. As outpatient, she has been undergoing workup for probable cause of secondary hypertension. On August,, she had CT scan abdomen that revealed no evidence of adrenal masses or tumors. During that time, she had blood work for cortisol which was low. Patient has been checking her blood pressure at home multiple multiple times. During this admission, she had CT scan brain that was done and showed no acute findings. 2D echocardiogram was done 5 days ago on June 16, 2017 and revealed normal LV size and function, EF was 70%, no significant valvular heart disease. Patient had a history of anxiety disorder/PTSD and fibromyalgia and she has been on Xanax for a long time. She was taken off Xanax few days ago and was started on Klonopin. During this hospital stay, she was started on lisinopril and received IV hydralazine as needed. Her blood pressure improved as well as heart rate. Obviously, patient has been having issues with anxiety which could be the initiating factor of her elevated blood pressure and tachycardia but new diagnosis of essential hypertension is the other possibility for which she was started on lisinopril. Serum cortisol done this admission was normal. ACTH also performed but was pending at the time of discharge. Urine 324 hours cortisone, urine metanephrine, urine normetanephrine sent and were pending at the time of discharge. At this time, I doubt that this patient has secondary hypertension secondary to adrenal tumors because of for her workup is unremarkable. Patient discharged home in a stable medical condition, instructed to taper down her Xanax over the last 15 days, go down to 1 mg at the every 5 days and then she can stop small dose of Klonopin, recommended to check blood pressure twice to 3 times a day, follow-up with PCP in 1 week. This note was generated with [employer] dictation software. It may contain incorrect words, spelling, and punctuation that were not noted in checking the note before signing. - Physical Exam Vital Signs Temp Pulse Resp BP Pulse Ox 98.4 F 87 15 136/74 H 97 06/21/18 11:52 06/21/18 11:52 06/21/18 11:52 06/21/18 11:52 06/21/18 11:52 Oxygen Delivery Method Room Air Weight: 209 lb 3.499 oz Body Mass Index (BMI) 31.8 Intake and Output for Last 24 Hours 06/19/18 06/20/18 06/21/18 23:59 23:59 23:59 Intake Total 450 / 450 Balance 450 / 450 Laboratory Tests Past 24 Hrs 06/21/18 06/21/18 06/21/18 02:03 02:03 02:10 WBC 13.2 H RBC 4.88 Hgb 14.7 Hct 42.3 MCV 86.7 MCH 30.1 MCHC 34.8 RDW 13.1 RDW Differential 41.8 Plt Count 298 MPV 9.2 Immature Gran % (Auto) 0.300 Neut % (Auto) 54.2 Lymph % (Auto) 34.2 [place] % (Auto) 9.2 Eos % (Auto) 1.9 Baso % (Auto) 0.2 Absolute Neuts (auto) 7.2 Absolute Lymphs (auto) 4.53 H Total Counted Not Reportable Sodium 138 Potassium 3.3 L Chloride 103 Carbon Dioxide 22.0 Anion Gap 13 BUN 11 Creatinine 0.53 L Estim Creat Clear Calc 143.76 Est GFR (MDRD) Af Amer 166 Est GFR (MDRD) Non-Af 137 BUN/Creatinine Ratio 20.9 H Glucose 103 Calcium 8.8 Magnesium Total Bilirubin 0.80 AST 23 ALT 51 Alkaline Phosphatase 67 Troponin I < 0.015 Total Protein 7.5 Albumin 4.3 Globulin 3.2 Albumin/Globulin Ratio 1.3 TSH 0.99 Cortisol ACTH Urine Color Yellow Urine Clarity Clear Urine pH 6.0 Ur Specific [place] 1.010 Urine Protein Negative Urine Glucose (UA) Normal Urine Ketones 50 H Urine Occult Blood Negative Urine Nitrite Negative Urine Bilirubin Negative Urine Urobilinogen Normal Ur Leukocyte Esterase Negative Urine RBC 0 SEEN Urine WBC 0 SEEN Ur Squamous Epith Cells 0 SEEN Urine Bacteria 0 SEEN Urine Mucus 0 SEEN Ur Free Cortisol 24 Hr Urine Free Cortisol Urine Metanephrine U Metanephrines 24 Hr U Normetanephrine U Normetanephrine 24h 06/21/18 06/21/18 06/21/18 04:45 05:02 05:02 WBC RBC Hgb Hct MCV MCH MCHC RDW RDW Differential Plt Count MPV Immature Gran % (Auto) Neut % (Auto) Lymph % (Auto) [place] % (Auto) Eos % (Auto) Baso % (Auto) Absolute Neuts (auto) Absolute Lymphs (auto) Total Counted Sodium 138 Potassium 3.5 Chloride 105 Carbon Dioxide 23.0 Anion Gap 10 BUN 9 Creatinine 0.49 L Estim Creat Clear Calc 155.49 Est GFR (MDRD) Af Amer 181 Est GFR (MDRD) Non-Af 149 BUN/Creatinine Ratio 18.4 Glucose 88 Calcium 8.6 Magnesium 1.8 Total Bilirubin AST ALT Alkaline Phosphatase Troponin I Total Protein Albumin Globulin Albumin/Globulin Ratio TSH Cortisol 8.50 ACTH Pending Urine Color Urine Clarity Urine pH Ur Specific [place] Urine Protein Urine Glucose (UA) Urine Ketones Urine Occult Blood Urine Nitrite Urine Bilirubin Urine Urobilinogen Ur Leukocyte Esterase Urine RBC Urine WBC Ur Squamous Epith Cells Urine Bacteria Urine Mucus Ur Free Cortisol 24 Hr Pending Urine Free Cortisol Pending Urine Metanephrine Pending U Metanephrines 24 Hr Pending U Normetanephrine Pending U Normetanephrine 24h Pending 06/21/18 05:02 WBC 11.5 H RBC 4.70 Hgb 13.9 Hct 41.2 MCV 87.7 MCH 29.6 MCHC 33.7 RDW 13.1 RDW Differential 42.1 Plt Count 266 MPV 9.2 Immature Gran % (Auto) Neut % (Auto) Lymph % (Auto) [place] % (Auto) Eos % (Auto) Baso % (Auto) Absolute Neuts (auto) Absolute Lymphs (auto) Total Counted Sodium Potassium Chloride Carbon Dioxide Anion Gap BUN Creatinine Estim Creat Clear Calc Est GFR (MDRD) Af Amer Est GFR (MDRD) Non-Af BUN/Creatinine Ratio Glucose Calcium Magnesium Total Bilirubin AST ALT Alkaline Phosphatase Troponin I Total Protein Albumin Globulin Albumin/Globulin Ratio TSH Cortisol ACTH Urine Color Urine Clarity Urine pH Ur Specific [place] Urine Protein Urine Glucose (UA) Urine Ketones Urine Occult Blood Urine Nitrite Urine Bilirubin Urine Urobilinogen Ur Leukocyte Esterase Urine RBC Urine WBC Ur Squamous Epith Cells Urine Bacteria Urine Mucus Ur Free Cortisol 24 Hr Urine Free Cortisol Urine Metanephrine U Metanephrines 24 Hr U Normetanephrine U Normetanephrine 24h Disposition: Home Minutes spent on discharge:: 26 Patient Condition:: Stable Meaningful Use Info Meaningful Use Diagnoses (Choose all that apply): None applicable Code Visit OBSV E&M: 66028 Observation care discharge
[2018-06-24 13:18] LABS: Cortisol, Urinary Free 78 ug/L (Undefined); Metanephrine, Ur 61 ug/L (Undefined); Normetanephrines, Ur 548 ug/L (Undefined)
[2018-06-25 19:59] LABS: Adrenocorticotropic Hormone 3.7 pg/mL (7.2-63.3); Cortisol, Free 24Ur 99 ug/24 hr (0-50); Metanephrines, 24Ur 78 ug/24 hr (45-290); Normetanephrines, 24Ur 699 ug/24 hr (82-500)
== END 2018-06-21 11:49 | disposition home or self-care (01) ==
LOC: ED 02:34 → PCU 04:02
PROVIDERS: Admitting Provider Family Medicine; Emergency Provider Emergency Medicine; Family Provider Family Medicine; PCP Family Medicine; Visit Provider Hospitalist
DX: I10 Essential (primary) hypertension (principal); G89.4 Chronic pain syndrome; M79.7 Fibromyalgia; F43.10 Post-traumatic stress disorder, unspecified; F41.9 Anxiety disorder, unspecified; K21.9 Gastro-esophageal reflux disease without esophagitis; K58.9 Irritable bowel syndrome, unspecified; E87.6 Hypokalemia
CPT/HCPCS: 36415; 70450; 80048; 80053; 81001; 82024; 82530; 82533; 83735; 83835; 84443; 84484; 85025; 85027; 93005; 96361; 96374; 96376; 97802; 99218; 99283; J7040; A4216; G0378

== ENCOUNTER → 2018-06-21 12:54 | Outpatient (CLI) | payer OTHER, SELFPAY ==
[2018-06-14 23:20] VITALS: BMI 31.9
[2018-06-21 03:55] VITALS: BMI 31.8
== END ==
PROVIDERS: Family Provider Family Medicine; PCP Family Medicine; Referring Provider Family Medicine; Visit Provider Family Medicine
DX: R00.0 Tachycardia, unspecified (principal); R00.2 Palpitations
CPT/HCPCS: 93225; 93226

== ENCOUNTER → 2018-07-06 08:25 | Outpatient (CLI) | payer OTHER, SELFPAY ==
[2018-06-21 03:55] VITALS: BMI 31.8
[2018-07-10 22:41] LABS: Cortisol, Urinary Free 48 ug/L (Undefined)
[2018-07-11 08:37] LABS: Cortisol, Free 24Ur 68 ug/24 hr (0-50); Metanephrine, Ur 40 ug/L (Undefined); Metanephrines, 24Ur 57 ug/24 hr (45-290); Normetanephrines, 24Ur 219 ug/24 hr (82-500); Normetanephrines, Ur 154 ug/L (Undefined)
--- OUTSIDE RECORDS SUMMARY | 2018-09-07 03:07 | XMS RPT_ITS ---
:1980 Author Organization OHIP Support Name Relationship Address Phone XOCHITL SANCHEZ Unavailable [address] + [place] [address] UE Unavailable Unavailable Unavailable S Unavailable Unavailable Unavailable DINA, XOCHITL Unavailable [address] + [place] [address] S Unavailable Unavailable Unavailable DINA, XOCHITL Unavailable [address] + [place] [address] S Unavailable Unavailable Unavailable DINA, XOCHITL Unavailable [address] + [place] [address] S Unavailable Unavailable Unavailable DINA, XOCHITL Unavailable [address] + [place] [address] S Unavailable Unavailable Unavailable IDNA, XOCHITL Unavailable [address] + [place] [address] S Unavailable Unavailable Unavailable DINA, XOCHITL Unavailable [address] + [place] [address] S Unavailable Unavailable Unavailable DINA, XOCHITL Unavailable [address] + [place] [address] DINA, XOCHITL Unavailable Unavailable + DINA, XOCHITL Unavailable Unavailable + S Unavailable Unavailable Unavailable DINA, XOCHITL Unavailable [address] + [place] [address] S Unavailable Unavailable Unavailable DINA, XOCHITL Unavailable [address] + [place] [address] Care Team Providers Name Role Phone Patsy Macario Primary Care Unavailable Efrain Coates Attending Unavailable Patsy Macario Attending Unavailable Patsy Macario Referring Unavailable Patsy Macario Primary Care Unavailable Ambar García Attending Unavailable Patsy Macario Attending Unavailable Patsy Macario Referring Unavailable Amirah, Patsy Primary Care Unavailable Amirah, Patsy Primary Care Unavailable Pérez, Murtaza Admitting Unavailable Dougieelfdevon, Gudeliaasem Attending Unavailable Pérez, Murtaza Admitting Unavailable Amirah, Patsy Primary Care Unavailable Ashelfdevon, Ghasem Consulting Unavailable Pérez, Murtaza Attending Unavailable Amirah, Patsy Attending Unavailable Amirah, Patsy Referring Unavailable Amirah, Patsy Primary Care Unavailable Amirah, Patsy Attending Unavailable Amirah, Patsy Primary Care Unavailable Moodispasalvador, Murtaza Attending Unavailable Amirah, Patsy Referring Unavailable Amirah, Patsy Attending Unavailable Amirah, Patsy Referring Unavailable Amirah, Patsy Primary Care Unavailable HETAL CADE MD Attending Unavailable AMIRAH DO, DR. PATSY Lawrence Primary Care Unavailable PROBLEMS PROBLEMS DATE TYPE CONDITION / CODE ATTENDING STATUS SOURCE 07/04/2018 Unknown R00.2 - Murtaza Ortiz Active [place] Palpitations / Community R00.2(ICD-10) Hospital Repository 10/04/2017 Unknown Z00.00 - Encounter Patsy Macario Active [place] for general adult [facility] examination Repository without abnormal findings / Z00.00(ICD-10) PROCEDURES PROCEDURES No Procedure Records FoundRESULTS RESULTS METANEPHRINE FRAC 24 HR Collected: 07/06/2018 Status: F Source: [place] UR 8:51 AM [facility] REPOSITORY TYPE CODE TESTS RESULT OUT OF RANGE REFERENCE UNITS LAB L3600.1400 Undefined ug/L Normal 154 NORMETANEPH, UR Result Comment: This test was developed and its performance characteristics determined by [facility]. It has not been cleared or approved by the Food and Drug Administration. LAB L3600.1500 82-500 ug/24 hr NORMETANEPH,U24 Normal 219 Result Comment: (Hypertensive) >17 years 11 months: 110 - 1050 LAB L3600.1600 Undefined ug/L METANEPHRINE,UR Normal 40 Result Comment: This test was developed and its performance characteristics determined by [facility]. It has not been cleared or approved by the Food and Drug Administration. LAB L3600.1700 45-290 ug/24 hr METANEPH,U24 Normal 57 Result Comment: (Hypertensive) >17 years 11 months: 35 - 460 Performed By: #### L3600.1100, L3600.5400 #### [facility] (refer to report for specific site) refer to report for address and phone number CORTISOL, 24 HR UR Collected: 07/06/2018 Status: F Source: [place] FREE 8:51 AM [facility] [place] [place] REPOSITORY TYPE CODE TESTS RESULT OUT OF RANGE REFERENCE UNITS LAB L3600.5500 Undefined ug/L Normal 48 CORTISOL,U FREE LAB L3600.5600 0-50 ug/24 hr High 68 CORTISOL,FR U24 Result Comment: This test was developed and its performance characteristics determined by [facility]. It has not been cleared or approved by the Food and Drug Administration. Performed at: [facility] Lab[address] [id number] Retaining Room Cutter: Kota Everett MD, Phone: [phone] Performed By: #### L3600.1100, L3600.5400 #### [facility] (refer to report for specific site) refer to report for address and phone number 12 LEAD ELECTROCARDIOGRAM Observed: 06/22/2018 Status: F Source: [place] 3:29 PM [facility] [place] [place] REPOSITORY [facility] Cardiovascular Services [address] [place] [id number] 12 Lead EKG 06/21/18 0205 MR#: [id number] Acct: [id number] Name: DRE SANCHEZ Rep #: [id number] : 1980 37 From: Murtaza Ortiz MD Attending Dr: Becca Guadalupe Status: DIS GREGORY Ordering Dr: Abdias Gardner MD Date: 06/21/18 Location: [facility] Sex: F C Admitted: 06/21/18 Test Reason : HYPERTENSION Blood Pressure : / mmHG Vent. Rate : 094 BPM Atrial Rate : 094 BPM P-R Int : 150 ms QRS Dur : 098 ms QT Int : 382 ms P-R-T Axes : 059 -21 017 degrees QTc Int : 477 ms Normal sinus rhythm Leftward axis Poor R wave progression Confirmed by ANGEL CARLOS, MURTAZA ([id number]), department editor ALCON HAMILTON ([id number]) on 06/22/2018 3:28:59 PM Referred By: Patsy Macario Confirmed By:MURTAZA ORTIZ MD 06/22/18 1529 Date Murtaza Ortiz MD CC: Becca Guadalupe; Patsy Macario DO; Abdias Gardner MD Signed DISCHARGE SUMMARY Observed: 06/21/2018 Status: F Source: [place] 1:51 PM [facility] [place] [place] REPOSITORY [facility] Medical Records Department [address] [address] Discharge Summary 06/21/18 1217 MR#: [id number] Acct: [id number] Name: DRE SANCHEZ Rep #: [id number] : 1980 37 From: Andria Aranda LINUX DEVOPS ENGINEER-C PCP: Patsy Macario DO Status: DIS GREGORY Y Location: [place] [id number] <Andria Aranda - Last Filed: 06/21/18 12:34> Discharge Date and Diagnosis Date of Admission: 06/21/18 Date of Discharge: 06/21/18 - Primary Discharge Diagnosis 1. Hypertension, new diagnosis 2. Anxiety disorder/PTSD 3. Chronic pain syndrome/fibromyalgia Hospital Course and Treatment Imaging Results: Diagnostic Data Brain CT 06/21/18 01:58 IMPRESSION: 1. Normal CT brain without contrast. 2. Mild paranasal sinus disease. Individualized dose optimization techniques were used for this CT. at 0307 Reported and signed by: Jaswinder Chino MD Electronically Signed: Jaswinder Chino, at 3:06 EST Tel , Service support , Operations: None Procedures: None Summary of Care Provided: The patient is a 37 year old F admitted 06/21/2018 due to tachycardia and hypertension. Patient reports intermittent episodes of increased heart rate and elevated blood pressure. She reports this is been ongoing for a few months, at least. She has a history of anxiety disorder/PTSD, fibromyalgia. She reports taking Xanax 4 times daily as well as [place] 4 times daily for the past few years. She does not follow with a psychiatrist or counselor. She states she has tried antidepressants and other non-benzo/narcotic regimens which have not worked for her or she reports she had adverse effects. Patient concerned that she may have a tumor, she reports outpatient workup for pheochromocytoma. CT of brain unremarkable. Random cortisol level unremarkable. 24-hour urine for metanephrines and 24-hour urine cortisol pending. Patient will continue 24-hour urine at discharge which will be completed tomorrow morning and follow-up results with primary care physician. ACTH level also pending. Patient was previously ordered a 24-hour Holter monitor which will be placed prior to discharge. Patient was started on lisinopril 10 mg daily for hypertension. She does not have a previous diagnosis of this. Pressure improved with addition of lisinopril. Discussed tapering previous xanax regimen at discharge. Patient given the following recommendations: Take 1mg every 8 hours for 5 days. Then 1mg every 12 hours for 5 days. Then 1mg daily for 5 days, then stop. She can then begin clonazepam 1mg NEEDED daily. Recommend follow up with counselor for help with anxiety. Patient referred to behavioral health for anxiety management. Also do not recommend taking vicodin 4x/day as this can lead to rebound headaches and opioid dependence. If able, take only as needed for pain. Patient reports she does want to wean off of benzodiazepines and is willing to take recommendations for doing so. General: Alert, Oriented x3, Cooperative HEENT: Atraumatic, Normocephalic Neck: Supple, Negative Carotid Bruits Lungs: Clear to auscultation, Normal air movement Cardiovascular: Regular rate, Normal S1, Normal S2, No murmurs, intermittent mild tachycardia Abdomen: Bowel Sounds Present, Soft, Non Tender Extremities: No edema, Capillary Refill Less than 3 Seconds Skin: No rashes, skin intact Musculoskeletal: No Tenderness to Palpation of Joints or Extremities Neurological: Neuro grossly intact Psych/Mental Status: Appears anxious, restless Patient seen and examined prior to discharge. Physical assessment as noted above. Patient is stable for discharge with follow up recommendations as noted above. This patient was seen by MERCEDES Moran under the supervision of Dr. Guadalupe. - Physical Exam Vital Signs Temp Pulse Resp BP Pulse Ox 98.4 F 87 15 136/74 H 97 06/21/18 11:52 06/21/18 11:52 06/21/18 11:52 06/21/18 11:52 06/21/18 11:52 Oxygen Delivery Method Room Air Weight: 209 lb 3.499 oz Body Mass Index (BMI) 31.8 Intake and Output for Last 24 Hours Intake Total 450 / 450 Balance 450 / 450 Laboratory Tests Past 24 Hrs WBC 11.5 H RBC 4.70 Hgb 13.9 Hct 41.2 MCV 87.7 MCH 29.6 MCHC 33.7 RDW 13.1 RDW Differential 42.1 Plt Count 266 MPV 9.2 Immature Gran % (Auto) Discharge Diet: No Restrictions Discharge Activity: Return to Normal Activity Call your doctor if you observe: Shortness of breath, Dizziness, Fainting spells, Chest pain Home Medications: Medications to take at Discharge Hydrocodone/Acetaminophen [Vicodin Hp 10-300 mg Tablet] 10 mg PO 4X/DAY 06/14/18 Promethazine HCl 25 mg PO BID PRN PRN 06/14/18 Clonazepam 1 mg PO TID 06/21/18 Lisinopril [Zestril] 10 mg PO DAILY #30 tablet 06/21/18 Following Prescrptions Were Given to Patient: Lisinopril [Zestril] 10 mg PO DAILY #30 tablet Primary Care Physician: Patsy Macario DO [Primary Care Provider] - Please follow up with your Primary Care Physician in: 1 Week Disposition: Home Minutes spent on discharge:: 35 Patient Condition:: Stable Medical Necessity - Tobacco Use Smoking Status: Never smoker Meaningful Use Info Meaningful Use Diagnoses (Choose all that apply): None applicable <Becca Guadalupe E - Last Filed: 06/21/18 13:51> Hospital Course and Treatment Summary of Care Provided: Hospitalist note: Discharge summary above reviewed as well as physical examination and I agree with above discharge plan. Patient was admitted because of elevated blood pressure and tachycardia as well as chest discomfort. Upon arrival to ER, blood pressure was 172/118 consistent with hypertensive urgency without evidence of endorgan damage. Her heart rate was around 115 upon arrival to ER. EKG revealed normal sinus rhythm without evidence of acute ischemic changes or cardiac arrhythmias. Her troponin was negative. Her routine blood work was remarkable for mild leukocytosis as well as mild hypokalemia and both with normalized on repeat CBC and BMP. The patient has been having intermittent episodes of sudden onset increased heart rate and elevated blood pressure over the last several months. As outpatient, she has been undergoing workup for probable cause of secondary hypertension. On August,, she had CT scan abdomen that revealed no evidence of adrenal masses or tumors. During that time, she had blood work for cortisol which was low. Patient has been checking her blood pressure at home multiple multiple times. During this admission, she had CT scan brain that was done and showed no acute findings. 2D echocardiogram was done 5 days ago on June 16, 2017 and revealed normal LV size and function, EF was 70%, no significant valvular heart disease. Patient had a history of anxiety disorder/PTSD and fibromyalgia and she has been on Xanax for a long time. She was taken off Xanax few days ago and was started on Klonopin. During this hospital stay, she was started on lisinopril and received IV hydralazine as needed. Her blood pressure improved as well as heart rate. Obviously, patient has been having issues with anxiety which could be the initiating factor of her elevated blood pressure and tachycardia but new diagnosis of essential hypertension is the other possibility for which she was started on lisinopril. Serum cortisol done this admission was normal. ACTH also performed but was pending at the time of discharge. Urine 324 hours cortisone, urine metanephrine, urine normetanephrine sent and were pending at the time of discharge. At this time, I doubt that this patient has secondary hypertension secondary to adrenal tumors because of for her workup is unremarkable. Patient discharged home in a stable medical condition, instructed to taper down her Xanax over the last 15 days, go down to 1 mg at the every 5 days and then she can stop small dose of Klonopin, recommended to check blood pressure twice to 3 times a day, follow-up with PCP in 1 week. This note was generated with [employer] and [employer]s dictation software. It may contain incorrect words, spelling, and punctuation that were not noted in checking the note before signing. - Physical Exam Vital Signs Temp Pulse Resp BP Pulse Ox 98.4 F 87 15 136/74 H 97 06/21/18 11:52 06/21/18 11:52 06/21/18 11:52 06/21/18 11:52 06/21/18 11:52 Oxygen Delivery Method Room Air Weight: 209 lb 3.499 oz Body Mass Index (BMI) 31.8 Intake and Output for Last 24 Hours Intake Total 450 / 450 Balance 450 / 450 Laboratory Tests Past 24 Hrs WBC 11.5 H RBC 4.70 Hgb 13.9 Hct 41.2 MCV 87.7 MCH 29.6 MCHC 33.7 RDW 13.1 RDW Differential 42.1 Plt Count 266 MPV 9.2 Immature Gran % (Auto) Disposition: Home Minutes spent on discharge:: 26 Patient Condition:: Stable Meaningful Use Info Meaningful Use Diagnoses (Choose all that apply): None applicable Code Visit OBSV E AND M: [id number] Observation care discharge 06/21/18 1234 <Electronically signed by Andria MCNEILC> Date Andria MCNEILC 06/21/18 1351<Electronically signed by Becca Guadalupe MD> Cosigner Signature (if applicable): Date Becca Guadalupe MD CC: LINUX DEVOPS ENGINEERIgor Aradna; Becca Guadalupe; Patsy Macario DO Signed DISCHARGE INSTRUCTION Observed: 06/21/2018 Status: F Source: [place] 12:17 PM [facility] [place] [place] REPOSITORY [facility] Medical Records Department [address] [facility] [place] [address] Instructions for Home/Discharge Instructions 06/21/18 1148 MR#: [id number] Acct: [id number] Name: DRE SANCHEZ Rep #: [id number] : 1980 37 From: Andria LONG PCP: Patsy Macario DO Status: ADM GREGORY You will use the following diet at home:: No restrictions Discharge Activity: Return to Normal Activity Call your doctor if you observe: Shortness of breath, Dizziness, Fainting spells, Chest pain Additional Instructions: We discussed tapering your previous xanax regimen at discharge. Please follow the recommendations below: Take 1mg every 8 hours for 5 days. Then 1mg every 12 hours for 5 days. Then 1mg daily for 5 days, then stop. You can then begin clonazepam 1mg NEEDED daily. Recommend follow up with counselor for help with anxiety. You were referred to behavioral health for anxiety management. Also do not recommend taking vicodin 4x/day as this can lead to rebound headaches and opioid dependence. If able, take as needed for pain. You were started on lisinpril 10mg daily for blood pressure control. You can continue to monitor your blood pressure at home, however would recommend only checking once in the morning and once in the evening and documenting these findings. Your brain CT, cortisol level and routine labwork was unremarkable. Allergies/Adverse Reactions: Allergies adhesive tape Adverse Reaction (Verified 06/21/18 01:50) Unknown baclofen Adverse Reaction (Verified 06/21/18 01:50) Unknown pregabalin [From Lyrica] Adverse Reaction (Verified 06/21/18 01:50) Unknown Medications to take at Discharge Hydrocodone/Acetaminophen [Vicodin Hp 10-300 mg Tablet] 10 mg PO 4X/DAY 06/14/18 Promethazine HCl 25 mg PO BID PRN PRN 06/14/18 Clonazepam 1 mg PO TID 06/21/18 Lisinopril [Zestril] 10 mg PO DAILY #30 tablet 06/21/18 The following prescriptions were given: Lisinopril [Zestril] 10 mg PO DAILY #30 tablet Primary Care Physician: Patsy Macario DO [Primary Care Provider] - Please follow up with your Primary Care Physician in: 1 Week Test Results: Test results from this visit will be discussed in further detail at your follow-up appointment, if applicable. Proposed Discharge Date: 06/21/18 06/21/18 1217 <Electronically signed by Andria LONG> Date Andria LONG CC: Patsy Macario DO Signed HISTORY AND PHYSICAL Observed: 06/21/2018 Status: F Source: [place] EXAM 6:47 AM [facility] [place] [place] REPOSITORY [facility] Medical Records Department [address] [place] [address] History and Physical 06/21/18 0346 MR#: [id number] Acct: [id number] Name: DRE SANCHEZ Rep #: [id number] : 1980 37 From: Murtaza Pérez MD PCP: Patsy Macario DO Status: ADM GREGORY Y Location: [place] [address] Problem List (1) Tachycardia Status: Acute (2) Elevated blood pressure reading without diagnosis of hypertension Status: Acute (3) Rapid palpitations Status: Acute History of Present Illness Date of Admission: 06/21/18 Chief Complaint: tachycardia and hypertensive The patient is a 37 year old female patient presents to the ER for the second time this month with a similar complaint of rapid heart rate and elevated blood pressure. She states she has been having bouts of tachycardia that are increasing in frequency and duration. The sensation are leaving her feeling fatigued and anxious. She has a history of anxiety and fibromyalgia for which she had been taking a total of 4mg xanax daily and norco 10/325 QID. Today she was switched from her xanax to klonopin. There has been some concern about pheochromocytoma but original ct scan one year ago was negative. Echo done yesterday result is pending. With rest she is able to recover to normotensive level but she remains tachycardic at baseline. She denies chest pain at this time. She will be admitted for further observation and workup. Past Medical History Medical History: Medical History (Last Updated 06/15/18 @ 16:48 by Ambar García) Tachycardia (Acute) R00.0 Anxiety F41.9 Bipolar disorder F31.9 Chronic pain syndrome G89.4 Fibromyalgia M79.7 GERD (gastroesophageal reflux disease) K21.9 Madhu de la Tourette syndrome F95.2 IBS (irritable bowel syndrome) K58.9 Marijuana use F12.90 medical marijuana use PTSD (post-traumatic stress disorder) F43.10 Recurrent nephrolithiasis N20.0 Allergies adhesive tape Adverse Reaction (Verified 06/21/18 01:50) Unknown baclofen Adverse Reaction (Verified 06/21/18 01:50) Unknown pregabalin [From Lyrica] Adverse Reaction (Verified 06/21/18 01:50) Unknown promethazine Adverse Reaction (Verified 06/21/18 01:50) Unknown Home Medications: Ambulatory Orders Medication Instructions Recorded Surgical History: Surgical History (Last Updated 06/15/18 @ 16:48 by Ambar García) H/O abdominoplasty Z98.890 H/O bilateral breast reduction surgery Z98.890 History of lithotripsy Z98.890 Hx of cholecystectomy Z90.49 Smoking Status: Never smoker - *Family History Maternal Family History: Family History (Last Updated 06/15/18 @ 16:48 by Ambar García) Father Hypertension History Items: No pertinent history Review of Systems Constitutional: Denies: Chills, Fever, Weight Change HEENT: Denies: Head Aches, Sinus Congestion, Sinus Drainage Cardiovascular: Reports: Light Headedness, Palpitations. Denies: Chest Pain Respiratory: Denies: Cough, Shortness of breath at rest, Sputum production Gastrointestinal: Denies: Abdominal Pain, Nausea, Vomiting Genitourinary: Denies: Dysuria Musculoskeletal: Denies: Joint Pain, Joint Tenderness Skin: Denies: Rash, Wounds Neurological: Denies: Numbness, Tingling, Focal weakness Psychiatric: Reports: Anxiety. Denies: Depression, Homicidal Ideations, Suicidal Ideations Hematologic/ Lymphatic: Denies: Easy Bruising, Easy Bleeding VTE Information - Inpt Only VTE Present on Admission: No VTE Mechan Device Prophylaxis: None VTE Pharm Prophylaxis ordered?: Yes - Physical Exam General: Alert, Oriented x3, Cooperative HEENT: Atraumatic, Normocephalic Neck: Supple, Negative Carotid Bruits Lungs: Clear to auscultation, Normal air movement, No rhonchi, No wheeze, No rales Cardiovascular: Regular rate, Normal S1, Normal S2, No murmurs, Tachycardic Abdomen: Bowel Sounds Present, Soft, Non Tender Extremities: No edema, Capillary Refill Less than 3 Seconds Skin: No rashes Musculoskeletal: No Tenderness to Palpation of Joints or Extremities Neurological: Neuro grossly intact Psych/Mental Status: Normal Affect, Appropriate Vital Signs Temp Pulse Resp BP Pulse Ox 98.4 F 100 16 155/109 H 96 06/21/18 01:45 06/21/18 03:26 06/21/18 03:26 06/21/18 03:26 06/21/18 03:26 Oxygen Delivery Method Room Air Weight: 210 lb 12.191 oz Body Mass Index (BMI) 32.0 Laboratory Tests Past 24 Hrs Assessment/Plan All Active Problems (Last Updated 06/15/18 @ 16:48 by Ambar García) Tachycardia (Acute) Elevated blood pressure reading without diagnosis of hypertension (Acute) Rapid palpitations (Acute) Plan -admit for observation to PCU. Collect 24 hr urine for metanephrines, am cortisol level. bmp,cbc,magnesium level. TSH was normal. continue telemetry. Consider beta blockade should recurrence happens, review echo report when available. - continue home medications for chronic pain and anxiety disorder. - LMWH for DVT prophylaxis. Code Visit OBSV Anoop RICHTER M: [id number] Initial observation care L2 06/21/18 0647 <Electronically signed by Murtaza Pérez MD> Date Murtaza Pérez MD Cosigner Signature: Date (if applicable) CC: Patsy Macario DO; Murtaza Pérez MD Signed CBC-COMPLETE BLOOD CNT Collected: 06/21/2018 Status: F Source: [place] NO DIFF 5:02 AM [facility] [place] [place] REPOSITORY TYPE CODE TESTS RESULT OUT OF RANGE REFERENCE UNITS LAB L100.1000 4.4-11.0 K/mm3 High WBC 11.5 LAB L100.1200 4.2-5.4 M/mm3 Normal RBC 4.70 LAB L100.1300 12.0-15.0 g/dl Normal HGB 13.9 LAB L100.1400 37-47 % Normal HCT 41.2 LAB L100.1500 81-99 fL Normal MCV 87.7 LAB L100.1600 27.0-32.0 pg Normal MCH 29.6 LAB L100.1700 32-36 g/gl Normal MCHC 33.7 LAB L100.1810 11.6-14.6 % Normal RDW CV 13.1 LAB L100.1820 35.1-43.9 fl Normal RDW SD 42.1 LAB L100.1900 150-450 K/mm3 Normal PLT 266 LAB L100.2000 6.2-12.0 fl Normal MPV 9.2 Performed By: #### L100.0500 #### [facility] [address]. [place], [place], [id number] BASIC METABOLIC Collected: 06/21/2018 Status: F Source: [place] PROFILE (BMP) 5:02 AM [facility] [place] [place] REPOSITORY TYPE CODE TESTS RESULT OUT OF RANGE REFERENCE UNITS LAB L501.0100 74-106 mg/dL Normal GLU 88 Result Comment: Please note revised GLUCOSE reference range effective 2017. LAB L501.1000 7-18 mg/dL Normal BUN 9 LAB L501.1100 0.55-1.02 mg/dL Low CREAT,SERUM 0.49 Result Comment: The validity of the calculated GFR AND GFRAA in patients over 70 years has not been determined. Clinical correlation is essential. LAB L501.1110 >60 mL/min Normal EST GFR 149 Result Comment: Non- GFR Calc LAB L501.1115 >60 mL/min Normal EST GFR - AA 181 Result Comment: GFR Calc LAB L501.1255 ml/min Normal Estimated CRCL 155.49 LAB L501.1300 10-20 RATIO BUN/CRE Normal 18.4 LAB L501.2200 8.5-10 mg/dL .1 CA Normal 8.6 LAB L501.5300 136-14 mmol/L 5 NA Normal 138 LAB L501.5600 3.5-5. mmol/L 1 K Normal 3.5 LAB L501.5900 98-107 mmol/L CL Normal 105 LAB L501.6100 21.0-3 mmol/L 2.0 CO2 Normal 23.0 LAB L501.6200 5-15 GAP Normal 10 Performed By: #### L500.2500, L501.5200 #### [facility] [address] [address] [place], [place], [address] MAGNESIUM Collected: 06/21/2018 Status: F Source: CAMI 5:02 AM [facility] [place], [place] REPOSITORY TYPE CODE TESTS RESULT OUT OF RANGE REFERENCE UNITS LAB L501.5200 1.6-2.6 mg/dL Normal MG 1.8 Performed By: #### L500.2500, L501.5200 #### [facility] [address] [place], [address] CORTISOL SERUM Collected: 06/21/2018 Status: F Source: CAMI 5:02 AM [facility] [place], [place] REPOSITORY TYPE CODE TESTS RESULT OUT OF RANGE REFERENCE UNITS LAB L509.6000 3.09-22.40 ug/dL Normal CORTISOL 8.50 Result Comment: Adult (AM) 4.30 - 22.40 ug/dL Adult (PM) 3.09 - 16.66 ug/dL Performed By: #### L509.6000 #### [facility] [address] [facility]. [place], [place], [id number] #### L3300.1000, L3600.1100, L3600.5400 #### [facility] (refer to report for specific site) refer to report for address and phone number ADRENOCORTICOTROPIC HORMONE Collected: Status: F Source: JEWETT 06/21/2018 4:45 AM [facility] [place], [place] REPOSITORY Order Comment: 24 HOUR URINE IN PROCESS BEING COLLECTED PER [place] ON PCU SENT FROZEN PLASMA IN TT ON DATED BATCH OF 06/20/18 WILL HEAD TO [facility] ON 06/21/18. 24 HOUR URINE WILL FINISH ABOUT 5 AM ON 06/22/17. HAD TO RECEIVE SPECIMAN SO I COULD SEND PLASMA(LAV TOP) TO [facility]. 24 HOUR URINE IS STILL OUTSTANDING UNTIL 06/22/17 APPROX. 0500. STEVEN AGUIRRE CALLED PT BEING DC'D PT WILL RETURN URINE TOMORROW TO OUT PT AREA LABELS ON CORKBOARD IN LAB. TYPE CODE TESTS RESULT OUT OF RANGE REFERENCE UNITS LAB L3300.1000 7.2-63.3 pg/mL Low ACTH 4440 3.7 Result Comment: ACTH reference interval for samples collected between 7 and 10 AM. Performed at: [facility] [address] [id number] Retaining Room Cutter: Kota Everett MD, Phone: [phone] Performed at: [facility] [address] [id number] Retaining Room Cutter: Antonio Torres PhD, Phone: [phone] Performed By: #### L509.6000 #### [facility] [address] [facility]. [place], [place], [id number] #### L3300.1000, L3600.1100, L3600.5400 #### [facility] (refer to report for specific site) refer to report for address and phone number METANEPHRINE FRAC 24 HR Collected: 06/21/2018 Status: F Source: CAMI UR 4:45 AM [facility] [place] REPOSITORY Order Comment: 24 HOUR URINE IN PROCESS BEING COLLECTED PER [place] ON PCU SENT FROZEN PLASMA IN TT ON DATED BATCH OF 06/20/18 WILL HEAD TO [facility] ON 06/21/18. 24 HOUR URINE WILL FINISH ABOUT 5 AM ON 06/22/17. HAD TO RECEIVE SPECIMAN SO I COULD SEND PLASMA(LAV TOP) TO [facility]. 24 HOUR URINE IS STILL OUTSTANDING UNTIL 06/22/17 APPROX. 0500. STEVEN AGURIRE CALLED PT BEING DC'D PT WILL RETURN URINE TOMORROW TO OUT PT AREA LABELS ON CORKBOARD IN LAB. TYPE CODE TESTS RESULT OUT OF RANGE REFERENCE UNITS LAB L3600.1400 Undefined ug/L Normal 548 NORMETANEPH, UR LAB L3600.1500 82-500 ug/24 hr High 699 NORMETANEPH, U24 Result Comment: (Hypertensive) >17 years 11 months: 110 - 1050 LAB L3600.1600 Undefined ug/L METANEPHRINE,UR Normal 61 LAB L3600.1700 45-290 ug/24 hr METANEPH,U24 Normal 78 Result Comment: (Hypertensive) >17 years 11 months: 35 - 460 Performed By: #### L509.6000 #### [facility] [address] [place], [place], [address] #### L3300.1000, L3600.1100, L3600.5400 #### [facility] (refer to report for specific site) refer to report for address and phone number CORTISOL, 24 HR UR Collected: 06/21/2018 Status: F Source: CAMI FREE 4:45 AM [facility] [place] [place] REPOSITORY Order Comment: 24 HOUR URINE IN PROCESS BEING COLLECTED PER [place] ON PCU SENT FROZEN PLASMA IN TT ON DATED BATCH OF 06/20/18 WILL HEAD TO [facility] ON 06/21/18. 24 HOUR URINE WILL FINISH ABOUT 5 AM ON 06/22/17. HAD TO RECEIVE SPECIMAN SO I COULD SEND PLASMA(LAV TOP) TO [facility]. 24 HOUR URINE IS STILL OUTSTANDING UNTIL 06/22/17 APPROX. 0500. STEVEN AGUIRRE CALLED PT BEING DC'D PT WILL RETURN URINE TOMORROW TO OUT PT AREA LABELS ON CORKBOARD IN LAB. TYPE CODE TESTS RESULT OUT OF RANGE REFERENCE UNITS LAB L3600.5500 Undefined ug/L Normal 78 CORTISOL,U FREE LAB L3600.5600 0-50 ug/24 hr High 99 CORTISOL,FR U24 Result Comment: This test was developed and its performance characteristics determined by [facility]. It has not been cleared or approved by the Food and Drug Administration. Performed By: #### L509.6000 #### [facility] [address] [place], [address] #### L3300.1000, L3600.1100, L3600.5400 #### [facility] (refer to report for specific site) refer to report for address and phone number EMERGENCY DEPARTMENT Observed: 06/21/2018 Status: F Source: JEWETT SUMMARY 3:24 AM [facility] [place], [place] REPOSITORY [facility] Medical Records Department [address] [place] [address] Emergency Department Summary 06/21/18 0217 MR#: [id number] Acct: [id number] Name: DRE SANCHEZ Lupe Rep #: [id number] : 1980 37 From: Abdias Gardner MD PCP: Patsy Macario DO Status: REG ER - ER Visit Summary Date of Service: 06/21/18 Chief Complaint: High blood pressure, heart racing, chest pain History of Present Illness: The patient is a 37 F presents to the emergency department multiple complaints. The patient is otherwise healthy. She does have a history of chronic pain disorder and does take medication for that. She states over the past few weeks, she has been having these bouts where she gets acutely flushed, she will be lightheaded, her heart will be racing, and she feels as if she is going to pass out. She states that she will take her blood pressure, and it will be markedly elevated in the 170 systolic. She states that she is also taken her heart rate and it has been 150-160. The patient was actually seen here on the second of this month. At that time, she had a rather negative workup. She has been undergoing outpatient workup for questionable pheochromocytoma. She had an echo done yesterday. She is scheduled for Holter monitor. She states when the symptoms come, they only last about 30 seconds to a minute, but she states she does feel like she is going to pass out. Physical Examination: Vital signs reviewed General: Well-nourished, well-developed Head: Normocephalic, atraumatic Eyes: Pupils equal and reactive, extraocular muscles intact Neck, supple, no lymphadenopathy Heart: Regular rate and rhythm Respiratory: No distress, clear bilaterally Abdomen: Soft, nontender, nondistended, no peritoneal signs Back: Nontender Extremities: Nontender, no edema, no cords Skin: Normal color no rash Neuro: Alert and oriented, no focal or lateralizing deficits Test Results: [] Emergency Department Course and Treatment: The patient will have intermittent swings where she becomes acutely tachycardic and hypertensive. This does seem very consistent with pheochromocytoma. She will get flushed and have heart rates that will race into the 150s. It does appear to be a sinus rhythm. The patient did have 2 episodes while in the emergency department where she became acutely hypertensive and tachycardic. Her labs were obtained and were unremarkable. I obtained a head CT given her headache. This is also unremarkable. EKG showed sinus rhythm without acute ischemia. The patient has had increasing frequency of these complaints. She is been near syncopal. I do feel that the safest thing would be to do an observational admission for cardiac monitoring and treatment of her blood pressure. The patient was discussed with the hospitalist. Treatment Plan: [] Disposition: Admission Impression: 1. Hypertensive urgency 2. Tachycardia This note was generated with Ebuzzing and Teads dictation software. It may contain incorrect words, spelling, and punctuation that were not noted in review of the chart prior to signing ED Disposition - Plan for ED Patient: Chief Complaint: Hypertension Referrals: Patsy Macario, DO [Primary Care Provider] - What to do if you have Problems For any increased pain, shortness of breath, bleeding, nausea or vomiting, chest pain, or any unexpected problems, contact your Primary Care Provider. Call [facility] ([phone]) or report to the closest Emergency Room. Call 911 if necessary. 06/21/18 0324 <Electronically signed by Abdias Gardner MD> Date Abdias Garnder MD Cosigner Signature (If Indicated): Date CC: Patsy Macario DO URINALYSIS, COMPLETE Collected: 06/21/2018 Status: F Source: CAMI 2:10 AM [facility] [place], [place] REPOSITORY Order Comment: Order Date: 06/21/18 Has pt arrived? Y How was Urine Obtained? CLEAN CATCH TYPE CODE TESTS RESULT OUT OF RANGE REFERENCE UNITS LAB L400.3000 Yellow COLOR Normal Yellow LAB L400.3050 Clear Normal CLARITY Clear LAB L400.3200 Normal mg/dl Normal GLUCOSE, UR Normal LAB L400.3300 Negative mg/dL Normal BILIRUBIN URINE Negative LAB L400.3400 Negative mg/dl High 50 KETONE UR LAB L400.3465 1.002-1.030 Normal SP.GR. DIPSTX 1.010 LAB L400.3550 5.0 - 8.0 pH UR Normal 6.0 LAB L400.3600 Negative mg/dl PROT Normal DIPSTX Negative LAB L400.3700 Normal mg/dl Normal UROBILI Normal LAB L400.3750 Negative Normal NITRITE UR Negative LAB L400.3780 Negative /ul Normal OCCULT BLOOD-UR Negative LAB L400.3800 Negative /ul LEUK Normal ESTERASE Negative LAB L400.4050 0-5 /hpf WBC 0 Normal SEEN LAB L400.4100 0-5 /hpf 0 Normal RBC-UA SEEN LAB L400.4150 5-10 /hpf SQUAM 0 Normal EPI SEEN LAB L400.4300 None Seen /hpf 0 Normal BACTERIA SEEN LAB L400.4350 <or=2+ /hpf 0 Normal MUCUS, URINE SEEN Performed By: #### L400.0001 #### [facility] [address] [place], [address] CBC W/DIFF, AUTOMATED Collected: 06/21/2018 Status: F Source: CAMI 2:03 AM [facility] [place] [place] REPOSITORY TYPE CODE TESTS RESULT OUT OF RANGE REFERENCE UNITS LAB L100.1000 4.4-11.0 K/mm3 High WBC 13.2 LAB L100.1200 4.2-5.4 M/mm3 Normal RBC 4.88 LAB L100.1300 12.0-15.0 g/dl Normal HGB 14.7 LAB L100.1400 37-47 % Normal HCT 42.3 LAB L100.1500 81-99 fL Normal MCV 86.7 LAB L100.1600 27.0-32.0 pg Normal MCH 30.1 LAB L100.1700 32-36 g/gl Normal MCHC 34.8 LAB L100.1810 11.6-14.6 % Normal RDW CV 13.1 LAB L100.1820 35.1-43.9 fl Normal RDW SD 41.8 LAB L100.1900 150-450 K/mm3 Normal PLT 298 LAB L100.2000 6.2-12.0 fl Normal MPV 9.2 LAB L100.2100 47-70 % Normal NEUT% 54.2 LAB L100.2200 19-41 % Normal LY% 34.2 LAB L100.2300 0-10 % Normal MONO% 9.2 LAB L100.2400 0-5 % Normal EO% 1.9 LAB L100.2500 0-1 % Normal BASO% 0.2 LAB L100.2550 0.0-0.9 % Normal IM GRAN % 0.300 Result Comment: IG% - Immature Granulocytes (promyelocytes, myelocytes and metamyelocytes) > 1% indicates that a LEFT SHIFT is Present. LAB L100.2620 2.0-7.7 X10 3/uL Normal Absolute Neut 7.2 LAB L100.2720 0.83-4.51 X10 3/ul High Absolute Lymph 4.53 Performed By: #### L100.0100 #### [facility] [address] [place], [address] COMPREHENSIVE METABOLIC Collected: 06/21/2018 Status: F Source: [facility] 2:03 AM [facility] [place] REPOSITORY TYPE CODE TESTS RESULT OUT OF RANGE REFERENCE UNITS LAB L501.0100 74-106 mg/dL Normal GLU 103 Result Comment: Fasting Glucose result from 100 to 125 mg/dL suggests IMPAIRED HOMEOSTASIS per A.D.A. criteria. Please note revised GLUCOSE reference range effective 2017. LAB L501.1000 7-18 mg/dL Normal BUN 11 LAB L501.1100 0.55-1.02 mg/dL Low CREAT,SERUM 0.53 Result Comment: The validity of the calculated GFR AND GFRAA in patients over 70 years has not been determined. Clinical correlation is essential. LAB L501.1110 >60 mL/min Normal EST GFR 137 Result Comment: Non- GFR Calc LAB L501.1115 >60 mL/min Normal EST GFR - AA 166 Result Comment: GFR Calc LAB L501.1255 ml/min Normal Estimated CRCL 143.76 LAB L501.1300 10-20 RATIO High BUN/CRE 20.9 LAB L501.1500 6.4-8. g/dL 2 T PROT Normal 7.5 LAB L501.1800 3.2-5. g/dL 0 ALB Normal 4.3 LAB L501.1950 2.2-4. g/dL 2 GLOB Normal 3.2 LAB L501.2000 0.9-2. RATIO 4 A/G Normal 1.3 LAB L501.2200 8.5-10 mg/dL .1 CA Normal 8.8 LAB L501.4100 15-37 U/L AST Normal 23 LAB L501.4305 45-117 U/L ALK P Normal 67 LAB L501.4405 13-56 U/L ALT Normal 51 LAB L501.4600 0.20-1 mg/dL .00 T BILI Normal 0.80 LAB L501.5300 136-14 mmol/L 5 NA Normal 138 LAB L501.5600 3.5-5. mmol/L Low 1 K 3.3 LAB L501.5900 98-107 mmol/L CL Normal 103 LAB L501.6100 21.0-3 mmol/L 2.0 CO2 Normal 22.0 LAB L501.6200 5-15 GAP Normal 13 Performed By: #### L500.4050, L501.4010, L501.9520 #### [facility] [address] [place], [address] TROPONIN-I Collected: 06/21/2018 Status: F Source: [place] 2:03 AM [facility] [place] REPOSITORY TYPE CODE TESTS RESULT OUT OF RANGE REFERENCE UNITS LAB L501.4010 <0.045 ng/mL Normal < 0.015 TROPONIN-I Result Comment: TROPONIN-I EXPECTED VALUES <0.045 Negative 0.045 - 0.590 Consistent with Cardiac Damage > OR = 0.600 Critical Value Not every elevated troponin is indicative of HI. These values should be used with clinical judgement in examining the patient's clinical picture for diagnosis. To establish a diagnosis of HI versus myocardial injury, there must be a demonstrated rise and/or fall in the troponin values, in addition to ischemic symptoms, EKG changes, new regional wall motion abnormality, and/or angiographical evidence. PLEASE NOTE: REFERENCE RANGES EDITED 17 Performed By: #### L500.4050, L501.4010, L501.9520 #### [facility] [address] [facility] [place], [address] THYROID STIM HORMONE Collected: 06/21/2018 Status: F Source: [place]ET[place] (TSH) 2:03 AM [facility] [place] REPOSITORY TYPE CODE TESTS RESULT OUT OF RANGE REFERENCE UNITS LAB L501.9520 0.358-3.74 uIU/mL Normal TSH 0.99 Performed By: #### L500.4050, L501.4010, L501.9520 #### [facility] [address] [facility] [place], [address] BRAIN/HEAD WITHOUT Observed: 06/21/2018 Status: F Source: [place] CONTRAST 1:59 AM [facility] [place] REPOSITORY [facility] Imaging Services [address] [place] [address] Brain/Head without Contrast MR#: [id number] Acct: [id number] Name: DRE SANCHEZ Rep #: [id number] : 1980 F 37 From: Jaswinder Chino MD PCP: Patsy Macario DO Status: REG ER Study: Brain/Head without Contrast Date of Exam: 06/21/18 Exam# [id number] Ordering Dr: Abdias Gardner MD HISTORY: PT STATED HYPERTENSION AND TACHYCARDIA, FEARS SHE MAY HAVE A TUMOR TECHNIQUE: Multiple axial images were obtained of the brain without intravenous contrast. A radiation dose optimization technique was used for this scan. IV Contrast dosage and agent: None. COMPARISON: None FINDINGS: Normal ventricles. Normal rincon-white matter differentiation. No intracranial mass, hemorrhage, or acute intracranial disease. Posterior fossa structures are unremarkable. No suspicious extra-axial fluid collection. Mild mucosal thickening and mild opacification of the ethmoid air cells, primarily anterior ethmoids and left sphenoid minor mucosal thickening The mastoids and middle ear cavities appear clear. CT/Brain/Head without Contrast IMPRESSION: 1. Normal CT brain without contrast. 2. Mild paranasal sinus disease. Individualized dose optimization techniques were used for this CT. at 0307 Reported and signed by: Jaswinder Chino MD Electronically Signed: Jaswinder Chino, at 3:06 EST Tel , Service support , CC: Patsy Macario DO; Abdias Gardner MD Heel Dipper: Signed EMERGENCY DEPARTMENT Observed: 06/17/2018 Status: F Source: [place]ET[place] SUMMARY 8:[address] [facility] Medical Records Department [address] [place] [address] Emergency Department Summary 06/15/18 0133 MR#: [id number] Acct: [id number] Name: DRE SANCHEZ Rep #: [id number] : 1980 37 From: Efrain Coates MD PCP: Patsy Macario DO Status: DEP ER - ER Visit Summary Date of Service: 06/15/18 Chief Complaint: Palpitations History of Present Illness: The patient is a [address] Macario. Reports that approximately 1 hour ago while at rest she had the onset of palpitations. States that she checked her blood pressure on the machine she has at home it was 160/105. She states that her heart rate was 165 at max. She reports the palpitations as an irregular beat. States that she did not have any chest pain. She felt very lightheaded as though she is going to pass out. She was nauseated with this. She denies any vomiting. She was diaphoretic and short of breath. Patient reports that she has had this multiple times in the past. They have not been unable to find an etiology of this. Physical Examination: Vitals: Stable. Afebrile. General: Well-nourished and well-developed. Head: Normocephalic atraumatic. Neck: Supple, no lymphadenopathy. No JVD. Nontender. Cardiovascular: Regular rate and rhythm. No murmurs. Respiratory: No respiratory distress. Clear to auscultation bilaterally. Abdominal: Soft, nontender, nondistended, normal bowel sounds. No guarding, rebound, or peritoneal signs. Back: Nontender. Extremities: Nontender, no edema. Skin: Normal color, no rash. Neurologic: Alert and oriented 3. Cranial nerves II through XII are intact. Normal strength and sensation. Psych: Normal affect. Test Results: EKG is sinus at [address] changes. There is no old EKG for comparison. Patient had an episode of palpitations emergency department. Her repeat EKG is sinus tachycardia 106 with no ischemic changes. Troponin is negative. D-dimer is negative. test is negative. Chem-7 is more for BUN/creatinine ratio 24.2. CBC is more for white count 13.4 with normal differential. TSH is 2.66. Magnesium is 1.7. Chest x-ray is normal. Emergency Department Course and Treatment: Patient is resting comfortably in emerge department. She did have an episode of palpitations and on the monitor she was in sinus tachycardia with a rate at highest of 130s. However, when she is resting her heart rate is in the 80s. Treatment Plan: I had a prolonged discussion with patient about her symptoms. I did discuss the fact that if her heart rate was in the 160s that she may have had an episode of paroxysmal atrial fibrillation. However, she is in sinus rhythm now and I do not feel that admission to the hospital is indicated. She will be discharged instructions to follow-up Dr. Macario and Dr. Wilburn as soon as possible. She instructed to return to emerge department for any chest pain or worsening palpitations. Disposition: To home in improved and stable condition. Impression: 1. Palpitations. 2. Sinus tachycardia. This note was generated with Ebuzzing and Teads dictation software. It may contain incorrect words, spelling, and punctuation that were not noted in review of the chart prior to signing ED Disposition - Plan for ED Patient: Disposition: Home or Assisted Living Chief Complaint: Palpitations Instructions: ED Palpitations Referrals: Patsy Macario DO [Primary Care Provider] - As soon as possible Murtaza Ortiz MD [STAFF PHYSICIAN] - As soon as possible What to do if you have Problems For any increased pain, shortness of breath, bleeding, nausea or vomiting, chest pain, or any unexpected problems, contact your Primary Care Provider. Call [facility] ([phone]) or report to the closest Emergency Room. Call 911 if necessary. 06/17/18 0803 <Electronically signed by Efrain Coates MD> Date Efrain Coates MD Cosigner Signature (If Indicated): Date CC: Patsy Macario DO ECHOCARDIOGRAM COMPLETE Observed: 06/16/2018 Status: F Source: [place] 7:19 PM [facility] [place] [place] REPOSITORY [facility] Cardiovascular Services [address] [place] [address] Echo Complete W/ Contrast 06/16/18 1359 MR#: [id number] Acct: [id number] Name: DRE SANCHEZ Rep #: [id number] : 1980 37 From: Murtaza Ortiz MD Attending Dr: Patsy Macario DO Status: REG CLI Ordering Dr: Patsy Macario DO Date: 06/16/18 Location: [facility] Sex: F C Admitted: Reason For Study: palpitations Procedure This was a 2D Doppler, Color Flow transthoracic echocardiogram. The study was technically difficult. Due to scar tissue from breast reduction. Contrast injection was performed. Exam performed in department. Left Ventricle Normal LV size. Left ventricular systolic function is normal. The estimated ejection fraction is 70 %. Transmitral doppler flow suggestive of impaired relaxation of left ventricle. No regional wall motion abnormalities noted. Right Ventricle Normal RV size. Normal systolic function. Atria Normal left atrium. Normal right atrium. No doppler evidence for ASD. Mitral Valve There is no mitral annular calcification. Normal mitral valve. Tricuspid Valve Normal tricuspid valve. Aortic Valve The aortic valve is not well visualized. Pulmonic Valve The pulmonic valve is not well visualized. Trivial pulmonic valve insufficiency. Great Vessels Normal sized aortic root. Pericardium/Pleural No pericardial effusion. Medication 22 gauge I.V. with prn adaptor inserted into left arm. Diluted definity 3.0ml given slow IV push to enhance endocardial definition. MMode/2D Measurements AND Calculations LVIDd: 3.6 cm IVSd: 1.3 cm Ao root diam: 3.3 cm LVIDs: 2.3 cm LVPWd: 0.98 cm LA dimension: 3.0 cm RVDd: 2.7 cm FS: 35.6 % LAV(MOD-bp): 50.5 ml LA A4 area: 15.3 cm2 RA A4 area: 11.3 cm2 LAV(MOD-bp) Indexed: 24.2 ml/m2 LAV(MOD-sp2): 50.5 ml LAV(MOD-sp4): 43.4 ml Time Measurements MV dec time: 0.21 sec Doppler Measurements AND Calculations MV E max tommy: 79.1 cm/sec Lat Peak E' Tommy: 7.9 cm/sec Med Peak E' Tommy: 8.4 cm/sec MV A max tommy: 92.4 cm/sec E/E' lat: 10.0 E/E' med: 9.4 MV E/A: 0.86 Ao V2 max: 159.1 cm/sec LV V1 max: 129.8 cm/sec PA V2 max: 105.2 cm/sec Ao max P.1 mmHg LV V1 max P.8 mmHg PI dec slope: 183.8 cm/sec2 Interpretation Summary The study was technically difficult. Contrast injection was performed. Left ventricular systolic function is normal. The estimated ejection fraction is 70 %. Trivial pulmonic valve insufficiency. Transmitral doppler flow suggestive of impaired relaxation of left ventricle Ordering Physician: Patsy Macario Referring Physician: Patsy Macario Performed By: Alina Nick, ELLE, RVT 06/16/181918 Date Murtaza Ortiz MD CC: Patsy Macario DO Date Dictated: 06/16/18 1359 Date Transcribed: 06/16/181918 Heel Dipper: Signed 12 LEAD ELECTROCARDIOGRAM Observed: 06/16/2018 Status: F Source: [facility]I 2:04 PM [facility] [place] [place] REPOSITORY [facility] Cardiovascular Services [address] [place] [address] 12 Lead EKG 06/14/18 2354 MR#: [id number] Acct: [id number] Name: DRE SANCHEZ Lupe Rep #: [id number] : 1980 37 From: Murtaza Ortiz MD Attending Dr: Status: DEP ER Ordering Dr: Efrain Coates MD Date: 06/14/18 Location: ED Sex: F C Admitted: Test Reason : Blood Pressure : / mmHG Vent. Rate : 106 BPM Atrial Rate : 106 BPM P-R Int : 168 ms QRS Dur : 094 ms QT Int : 356 ms P-R-T Axes : 055 -31 032 degrees QTc Int : 472 ms Sinus tachycardia Possible Left atrial enlargement Left axis deviation Abnormal ECG Confirmed by MURTAZA ORTIZ MD ([id number]), department editor ALCON HAMILTON ([id number]) on 06/16/2018 2:04:02 PM Referred By: MAMADOU Confirmed By:MURTAZA ORTIZ MD 06/16/18 1401 Date Murtaza Ortiz MD CC: Patsy Macario DO; Efrain Coates MD Signed 12 LEAD ELECTROCARDIOGRAM Observed: 06/16/2018 Status: F Source: [place] 1:57 PM [facility] [place] [place] REPOSITORY [facility] Cardiovascular Services [address] [place] [address] 12 Lead EKG 06/14/18 2330 MR#: [id number] Acct: [id number] Name: DRE SANCHEZ Rep #: [id number] : 1980 37 From: Murtaza Ortiz MD Attending Dr: Status: DEP ER Ordering Dr: Efrain Coates MD Date: 06/14/18 Location: ED Sex: F C Admitted: Test Reason : PALPS Blood Pressure : / mmHG Vent. Rate : 094 BPM Atrial Rate : 094 BPM P-R Int : 176 ms QRS Dur : 098 ms QT Int : 368 ms P-R-T Axes : 059 -21 031 degrees QTc Int : 460 ms Normal sinus rhythm Possible Left atrial enlargement Incomplete right bundle branch block Borderline ECG Confirmed by MURTAZA ORTIZ MD ([id number]), department editor ALCON HAMILTON ([id number]) on 06/16/2018 1:57:03 PM Referred By: MAMADOU Confirmed By:MURTAZA ORTIZ MD 06/16/18 6279 Date Murtaza Ortiz MD CC: Patsy Amirah PETERS; Efrain Coates MD Signed CBC W/DIFF, AUTOMATED Collected: 06/15/2018 Status: F Source: CAMI 12:05 AM [facility] [place] [place] REPOSITORY TYPE CODE TESTS RESULT OUT OF RANGE REFERENCE UNITS LAB L100.1000 4.4-11.0 K/mm3 High WBC 13.4 LAB L100.1200 4.2-5.4 M/mm3 Normal RBC 4.76 LAB L100.1300 12.0-15.0 g/dl Normal HGB 14.3 LAB L100.1400 37-47 % Normal HCT 40.8 LAB L100.1500 81-99 fL Normal MCV 85.7 LAB L100.1600 27.0-32.0 pg Normal MCH 30.0 LAB L100.1700 32-36 g/gl Normal MCHC 35.0 LAB L100.1810 11.6-14.6 % Normal RDW CV 13.1 LAB L100.1820 35.1-43.9 fl Normal RDW SD 40.5 LAB L100.1900 150-450 K/mm3 Normal PLT 284 LAB L100.2000 6.2-12.0 fl Normal MPV 9.1 LAB L100.2100 47-70 % Normal NEUT% 59.9 LAB L100.2200 19-41 % Normal LY% 31.5 LAB L100.2300 0-10 % Normal MONO% 5.9 LAB L100.2400 0-5 % Normal EO% 2.2 LAB L100.2500 0-1 % Normal BASO% 0.1 LAB L100.2550 0.0-0.9 % Normal IM GRAN % 0.400 Result Comment: IG% - Immature Granulocytes (promyelocytes, myelocytes and metamyelocytes) > 1% indicates that a LEFT SHIFT is Present. LAB L100.2620 2.0-7.7 X10 3/uL High Absolute Neut 8.0 LAB L100.2720 0.83-4.51 X10 3/ul Normal Absolute Lymph 4.22 Performed By: #### L100.0100 #### [facility] [address] [place], [address] D-DIMER QUANTITATIVE Collected: 06/15/2018 Status: F Source: CAMI (DVT/PE) 12:05 AM [facility] [place], [place] REPOSITORY TYPE CODE TESTS RESULT OUT OF RANGE REFERENCE UNITS LAB L300.8000 0.27-0.49 FEU/ug/m Low D-DIMER < 0.27 QUANT Result Comment: NORMAL D-Dimer level (<0.50) indicates no DVT or PE. Performed By: #### L300.8000 #### [facility] [address] [place], [place], [address] BASIC METABOLIC Collected: 06/15/2018 Status: F Source: CAMI PROFILE (BMP) 12:05 AM [facility] [place] [place] REPOSITORY TYPE CODE TESTS RESULT OUT OF RANGE REFERENCE UNITS LAB L501.0100 74-106 mg/dL Normal GLU 91 Result Comment: Please note revised GLUCOSE reference range effective 2017. LAB L501.1000 7-18 mg/dL Normal BUN 16 LAB L501.1100 0.55-1.02 mg/dL Normal CREAT,SERUM 0.66 Result Comment: The validity of the calculated GFR AND GFRAA in patients over 70 years has not been determined. Clinical correlation is essential. LAB L501.1110 >60 mL/min Normal EST GFR 106 Result Comment: Non- GFR Calc LAB L501.1115 >60 mL/min Normal EST GFR - AA 128 Result Comment: GFR Calc LAB L501.1255 ml/min Normal Estimated CRCL 115.44 LAB L501.1300 10-20 RATIO High BUN/CRE 24.2 LAB L501.2200 8.5-10 mg/dL .1 CA Normal 8.8 LAB L501.5300 136-14 mmol/L 5 NA Normal 139 LAB L501.5600 3.5-5. mmol/L 1 K Normal 3.6 LAB L501.5900 98-107 mmol/L CL Normal 106 LAB L501.6100 21.0-3 mmol/L 2.0 CO2 Normal 23.0 LAB L501.6200 5-15 GAP Normal 10 Performed By: #### L500.2500, L501.4010, L501.5200, L501.9520 #### [facility] [address] [place], [place], [address] TROPONIN-I Collected: 06/15/2018 Status: F Source: JEWETT 12:05 AM [facility] [place] [place] REPOSITORY TYPE CODE TESTS RESULT OUT OF RANGE REFERENCE UNITS LAB L501.4010 <0.045 ng/mL Normal < 0.015 TROPONIN-I Result Comment: TROPONIN-I EXPECTED VALUES <0.045 Negative 0.045 - 0.590 Consistent with Cardiac Damage > OR = 0.600 Critical Value Not every elevated troponin is indicative of HI. These values should be used with clinical judgement in examining the patient's clinical picture for diagnosis. To establish a diagnosis of HI versus myocardial injury, there must be a demonstrated rise and/or fall in the troponin values, in addition to ischemic symptoms, EKG changes, new regional wall motion abnormality, and/or angiographical evidence. PLEASE NOTE: REFERENCE RANGES EDITED 17 Performed By: #### L500.2500, L501.4010, L501.5200, L501.9520 #### [facility] [address] [place], [address] MAGNESIUM Collected: 06/15/2018 Status: F Source: JEWETT 12:05 AM [facility] [place] [place] REPOSITORY TYPE CODE TESTS RESULT OUT OF RANGE REFERENCE UNITS LAB L501.5200 1.6-2.6 mg/dL Normal MG 1.7 Performed By: #### L500.2500, L501.4010, L501.5200, L501.9520 #### [facility] [address] [place], [address] THYROID STIM HORMONE Collected: 06/15/2018 Status: F Source: JEWETT (TSH) 12:05 AM [facility] [place] [place] REPOSITORY TYPE CODE TESTS RESULT OUT OF RANGE REFERENCE UNITS LAB L501.9520 0.358-3.74 uIU/mL Normal TSH 2.66 Performed By: #### L500.2500, L501.4010, L501.5200, L501.9520 #### [facility] [address] [place], [address] ,SERUM,HCG QUALI. Collected: Status: F Source: JEWETT 06/15/2018 12:05 AM [facility] [place] [place] REPOSITORY TYPE CODE TESTS RESULT OUT OF REFERENCE UNITS RANGE LAB L700.7000 0-9 Nonpreg Negative Normal HCGSQUAL NEGATIVE LAB L700.6700 =>Qualitative mIU/mL Normal HCG Qual < 1 triggr Performed By: #### L700.6800 #### [facility] [address] [place], [address] CHEST 1 VIEW Observed: 06/14/2018 Status: F Source: JEWETT (PORTABLE) 11:32 PM [facility] [place] [place] REPOSITORY [facility] Imaging Services [address] [place] [address] Chest 1 View (Portable) MR#: [id number] Acct: [id number] Name: DRE SANCHEZ Rep #: [id number] : 1980 F 37 From: London Scanlon MD PCP: Patsy Macario DO Status: REG ER Study: Chest 1 View (Portable) Date of Exam: 06/14/18 Exam# [id number] Ordering Dr: Efrain Coates MD STUDY: X-RAY CHEST REASON FOR EXAM: Female, 37 years old. Palpitations TECHNIQUE: 1 view COMPARISON: 08/24/2013 FINDINGS: The lungs are clear and expanded. There is no demonstrated pleural abnormality. Normal size heart. Normal mediastinum and trino. Normal visualized pulmonary arteries. Normal visualized aortic arch and descending thoracic aorta. Normal visualized thoracic spine. Normal visualized ribs, clavicles, and shoulders. There is no demonstrated abnormality of the visualized soft tissue structures of the upper abdomen. RAD/Chest 1 View (Portable) IMPRESSION: Normal x-ray examination of the chest. No acute findings in the lungs Electronically Signed: London Scanlon MD at 0:57 EST Tel , Service support , CC: Patsy Macario DO; Efrain Coates MD Heel Dipper: Signed CBC Collected: 09/19/2017 Status: F Source: [facility] 10:01 [facility] REPOSITORY TYPE CODE TESTS RESULT OUT OF REFERENCE UNITS RANGE LAB WBC(LOINC) 4.60-10.80 10 3/mcL WBC 9.80 LAB RBCCT(LOINC 4.20-5.40 10 6/mcL ) RBC 5.35 LAB HGB(LOINC) 12.0-16.0 G/dL High Hgb 16.2 LAB HCT(LOINC) 37.0-47.0 % Hct 46.1 LAB MCV(LOINC) 80.0-94.0 fL MCV 86.3 LAB MCH(LOINC) 27.0-31.2 pg MCH 30.2 LAB MCHC(LOINC) 33.0-37.0 G/dL MCHC 35.0 LAB RDW(LOINC) 11.5-14.5 % RDW 13.8 LAB PLT(LOINC) 130-400 10 3/mcL Platelet 325 LAB MPV(LOINC) 7.4-10.4 fL MPV 8.2 Performed By: #### CBC, ADIFF, ANEU, TROP, LIP, CMP, GFR #### [place] [address] .AUTO DIFF Collected: 09/19/2017 Status: F Source: [facility] 10:01 [facility] REPOSITORY TYPE CODE TESTS RESULT OUT OF REFERENCE UNITS RANGE LAB JALYN(LOINC) 37.0-80.0 % Neutrophil % 54.8 LAB LYM(LOINC) 10.0-50.0 % Lymphocyte % 31.7 LAB MON(LOINC) 1.7-13.0 % Monocyte % 10.2 LAB EO(LOINC) 0.0-7.0 % Eosinophil % 2.9 LAB BAS(LOINC) 0.0-2.5 % Basophil % 0.4 LAB ABLYM(LOIN 0.77-3.85 10 3/mcL C) Lymphocyte, 3.10 Absolute LAB STU(LOINC 0.15-1.00 10 3/mcL ) Monocyte, 1.00 Absolute LAB AEOS(LOINC 0.00-0.40 10 3/mcL ) Eosinophil, 0.30 Absolute LAB ABAS(LOINC 0.00-0.19 10 3/mcL ) Basophil, 0.00 Absolute Performed By: #### CBC, ADIFF, ANEU, TROP, LIP, CMP, GFR #### [place] [address] .NEUABS Collected: 09/19/2017 Status: F Source: [facility] 10:01 [facility] REPOSITORY TYPE CODE TESTS RESULT OUT OF REFERENCE UNITS RANGE LAB ANEU(LOINC) 2.85-6.16 10 3/mcL Neutrophil, 5.40 Absolute Performed By: #### CBC, ADIFF, ANEU, TROP, LIP, CMP, GFR #### [place] [address] TROP Collected: 09/19/2017 Status: F Source: [facility] 10:01 [facility] REPOSITORY TYPE CODE TESTS RESULT OUT OF REFERENCE UNITS RANGE LAB TROP(LOINC) 0.00-0.30 ng/mL Troponin <0.30 Result Comment: Below measuring range >=0.30 Consistent with cardiac damage, increased clinical risk and possibility of myocardial infarction. Serial measurements, clinical history, appropriate symptoms and/or ECG changes may help assess possibility of HI. *Other non-acute coronary syndrome conditions such as CHF, myocarditis, pulmonary emboli, sepsis and cardiac surgery could result in myocardial damage and increased troponin levels. Performed By: #### CBC, ADIFF, ANEU, TROP, LIP, CMP, GFR #### [place] [address] LIP Collected: 09/19/2017 Status: F Source: [facility] 10:01 [facility] REPOSITORY TYPE CODE TESTS RESULT OUT OF REFERENCE UNITS RANGE LAB LIP(LOINC) 8-78 IU/L Lipase Level 29 Performed By: #### CBC, ADIFF, ANEU, TROP, LIP, CMP, GFR #### [place] [address] CMP Collected: 09/19/2017 Status: F Source: [facility] 10:01 [facility] REPOSITORY TYPE CODE TESTS RESULT OUT OF REFERENCE UNITS RANGE LAB 1547-9 70-105 mg/dL GLUCOSE High 134 LAB NA(LOINC) 136-146 mEq/L Sodium Level 138 LAB K(LOINC) 3.5-5.1 mEq/L Potassium Level 3.8 LAB CL(LOINC) 98-107 mEq/L Chloride 104 LAB CO2(LOINC) 22-29 mEq/L CO2 23 LAB EBAL(LOINC mEq/L ) Electrolyte Balance 11.0 LAB BUN(LOINC) 7.0-18.0 mg/dL BUN 10.3 LAB CRE(LOINC) 0.6-1.2 mg/dL Creatinine Lvl (s) 0.7 LAB BC(LOINC) 7-27 ratio BUN/Creatinine 15 Ratio LAB CA(LOINC) 8.4-10.2 mg/dL Calcium Lvl 9.9 LAB PROT(LOINC 6.0-8.3 G/dL ) Total Protein 7.6 LAB ALB(LOINC) 3.5-5.0 G/dL Albumin Level 4.9 LAB GLB(LOINC) G/dL Globulin 2.7 LAB AG(LOINC) 1.1-2.5 ratio A/G Ratio 1.8 LAB BILT(LOINC 0.2-1.0 mg/dL ) Bili Total 0.5 LAB AP(LOINC) 40-135 IU/L Alk Phos 70 LAB AST(LOINC) 10-40 IU/L AST/SGOT 26 LAB ALT(LOINC) 10-35 IU/L ALT/SGPT High 43 Performed By: #### CBC, ADIFF, ANEU, TROP, LIP, CMP, GFR #### [place] [id number] .GFR Collected: 09/19/2017 Status: F Source: [facility] 10:01 [facility] REPOSITORY TYPE CODE TESTS RESULT OUT OF REFERENCE UNITS RANGE LAB GFRAA(LOINC ml/min/1.73 ) sqm GFR 111 [place] Result Comment: GFR Population mean for , Non- Americans Ages 20-29 = 116 mL/min/1.73 sq.m. Ages 30-39 = 107 mL/min/1.73 sq.m. Ages 40-49 = 99 mL/min/1.73 sq.m. Ages 50-59 = 93 mL/min/1.73 sq.m. Ages 60-69 = 85 mL/min/1.73 sq.m. Ages 70+ = 75 mL/min/1.73 sq.m. Chronic Kidney Disease: Less than 60 mL/min/1.73 square meters End Stage Renal Disease: Less than 15 mL/min/1.73 square meters LAB GFRNO(LOINC) ml/min/1.73sqm GFR Non- >60 Result Comment: GFR Population mean for , Non- Americans Ages 20-29 = 116 mL/min/1.73 sq.m. Ages 30-39 = 107 mL/min/1.73 sq.m. Ages 40-49 = 99 mL/min/1.73 sq.m. Ages 50-59 = 93 mL/min/1.73 sq.m. Ages 60-69 = 85 mL/min/1.73 sq.m. Ages 70+ = 75 mL/min/1.73 sq.m. Chronic Kidney Disease: Less than 60 mL/min/1.73 square meters End Stage Renal Disease: Less than 15 mL/min/1.73 square meters Performed By: #### CBC, ADIFF, ANEU, TROP, LIP, CMP, GFR #### [place] [address] [place], [place] [address] PREGS Collected: 09/19/2017 Status: F Source: [facility] 10:01 AM [facility] REPOSITORY TYPE CODE TESTS RESULT OUT OF RANGE REFERENCE UNITS LAB PRGS(LOINC ) test Negative (s) LAB PRGSIN(STEPHANIE NC) Unknown test HCG not (s) int detected. LAB CD:[id number] Negative 73(LOINC) QC PRGSN Negative LAB CD:[id number] Positive 71(LOINC) QC PRGSP Positive Performed By: #### PREGS #### [address] [address] LIPID PROFILE Collected: 09/07/2017 Status: F Source: CAMI 8:03 AM [facility] [place] [place] REPOSITORY TYPE CODE TESTS RESULT OUT OF RANGE REFERENCE UNITS LAB L501.4900 200 mg/dL High CHOL 205 Result Comment: <200 mg/dL Desirable 200-240 mg/dL Borderline >240 mg/dL High Risk LAB L501.5000 mg/dL Normal TRIG 177 Result Comment: The drugs N-Acetylcysteine and Metamizole may falsely depress this assay. Serum Triglycerides Reference Interval Normal <150 mg/dL Borderline high 150 - 199 mg/dL High 200 - 499 mg/dL Very High > or = 500 mg/dL LAB L501.6400 mg/dL Normal HDL 47 Result Comment: The drugs N-Acetylcysteine and Metamizole may falsely depress this assay. Reference Range HDL <40 mg/dL Low HDL Cholesterol HDL >or= 60 mg/dL High HDL Cholesterol LAB L501.6500 0-130 mg/dL Normal LDL 123 LAB L501.6600 5-40 mg/dL Normal VLDL 35 Performed By: #### L500.4100, L3100.5420 #### [facility] [address] [place], [address] PROLACTIN Collected: 09/07/2017 Status: F Source: JEWETT 8:03 AM [facility] [place] [place] REPOSITORY TYPE CODE TESTS RESULT OUT OF RANGE REFERENCE UNITS LAB L3100.5420 ng/mL Normal PROLACTIN 5.9 Result Comment: NORMAL REFERENCE RANGES FEMALE NON- 2.2 - 30.3 ng/mL 8.1 - 347.6 ng/mL POST-MENOPAUSAL 0.7 - 31.5 ng/mL MALE 2.5 - 17.4 ng/mL NEW TEST METHOD AND REFERENCE RANGES NOVEMBER 02, 2011 Performed By: #### L500.4100, L3100.5420 #### [facility] [address] [place], [address] HEMOGLOBIN A1C Collected: 09/07/2017 Status: F Source: JEWETT 8:03 AM [facility] [place] [place] REPOSITORY TYPE CODE TESTS RESULT OUT OF RANGE REFERENCE UNITS LAB L501.9985 4.2-6.3 % Normal HGB A1C 5.3 Performed By: #### L501.9985 #### [facility] [address] [place], [address] CORTISOL SERUM Collected: 09/07/2017 Status: F Source: JEWETT 8:03 AM [facility] [place] [place] REPOSITORY TYPE CODE TESTS RESULT OUT OF REFERENCE UNITS RANGE LAB L509.6000 3.09-22.40 ug/dL Low CORTISOL 1.00 Result Comment: Adult (AM) 4.30 - 22.40 ug/dL Adult (PM) 3.09 - 16.66 ug/dL Performed By: #### L509.6000, [id number] #### [facility] [address] [place], [address] INSULIN Collected: 09/07/2017 Status: F Source: CAMI 8:03 AM [facility] [place] [place] REPOSITORY TYPE CODE TESTS RESULT OUT OF RANGE REFERENCE UNITS LAB [id number] 2.6-37.6 mU/L Normal Insulin 26.6 Result Comment: Please Note: INSULIN METHOD AND REFERENCE RANGE CHANGE Effective 06/24/2017. Performed By: #### L509.6000, [id number] #### [facility] [address] [place], [address] MISCELLANEOUS LAB Collected: 09/07/2017 Status: F Source: CAMI PROCEDURE 8:03 AM [facility] [place] [place] REPOSITORY Order Comment: Test(s) Ordered: #[id number] TYPE CODE TESTS RESULT OUT OF RANGE REFERENCE UNITS LAB L801.1541 Normal [facility] Result Comment: TEST RESULT LIMITS Dexamethasone, Serum 278 ng/dL Reference Range: Adults baseline: <30 8:00 AM following 1 mg dexamethasone previous evenin - 295 8:00 AM following 8 mg dexamethasone (4 x 2 mg doses) previous day: 1600 - 2850 TESTING PERFORMED AT [facility]. ORIGINAL REPORT ON FILE IN LAB CONTAINS ADDITIONAL TEST SITE INFORMATION. Performed By: #### L801.1541 #### [facility] [address] [place], [address] ABDOMEN W/WO IV Observed: 09/03/2017 Status: F Source: [place] CONTRAST 1:15 PM [facility] [place] [place] REPOSITORY [facility] Imaging Services [address] [place] [address] Abdomen W/WO IV Contrast MR#: [id number] Acct: [id number] Name: DRE SANCHEZ Rep #: [id number] : 1980 F 36 From: Shaila Uriarte MD PCP: Patsy Macario DO Status: REG CLI Study: Abdomen W/WO IV Contrast Date of Exam: 09/03/17 Exam# [id number] Ordering Dr: Patsy Macario DO STUDY: CT ABDOMEN WITH AND WITHOUT CONTRAST REASON FOR EXAM: Female, 36 years old. Elevated cortisol, hypertension, tachycardia, intermittent fevers, ? adrenal adenoma vs pheochromocytoma. Uncontrolled hypertension, prior cholecystectomy, lithotripsy. Adrenal protocol RADIATION DOSAGE (If Supplied By Facility): CTDIvol = ( 29.79 ) mGy, DLP = ( 2206.57 ) mGycm TECHNIQUE: Transaxial images were obtained pre and post I.V. administration of 100mL ml of Isovue 300, and no oral contrast. Sagittal and coronal images were reconstructed. Imaging was performed without, with and with delayed images Individualized dose optimization techniques were used for this CT. COMPARISON: Prior comparison studies are not available for review at this time. A prior CT abdomen and pelvis report February 04, 2010 describes normal adrenal glands. FINDINGS: The visualized lung bases are unremarkable. The visualized portions of the heart are within normal limits. Normal liver. Normal gallbladder and extrahepatic biliary system. Normal spleen. Normal pancreas. Normal bilateral adrenal glands. The adrenal glands are normal in size. There is no evidence of an adrenal nodule Normal right kidney. Normal left kidney. There is a punctate nonobstructing calculus associated with the mid to lower pole of the left kidney measuring approximately 2 mm. Although the study was not specifically performed to evaluate the renal arteries, on the images presented the renal arteries show no sign of stenosis and no irregularity to suggest fibromuscular dysplasia. Normal visualized stomach. Normal small intestine. Normal colon. There is non-visualization of the appendix. Normal abdominal aorta. Normal inferior vena cava. Normal retroperitoneum. Normal abdominal wall. Normal osseous structures. CT/Abdomen W/WO IV Contrast IMPRESSION: Normal unenhanced and enhanced CT of the abdomen. Normal appearance of adrenal glands. No retroperitoneal mass or other mass suspect for a pheochromocytoma. In the patient with biochemistry for pheochromocytoma MRI could be performed in an attempt to identify potential pheochromocytoma. The imaging should be obtained from the domes of the diaphragm all the way through the urinary bladder. They are characteristically solid hypervascular masses with high signal intensity on T2 images but a wide spectrum of imaging appearances may be encountered. 2 mm nonobstructing left renal calculus noted. Electronically Signed: Shaila Uriarte MD at 22:37 EDT Tel , Service support , CC: Patsy Macario DO Heel Dipper: Signed ALLERGIES ALLERGIES DATE TYPE / CODE NAME / CODE REACTION SEVERITY SOURCE 06/21/2018 Drug baclofen/Y67255 Unknown Unknown [place] [facility] Allergy/416 1677(RXNORM) Hospital 106589(SNOM Repository ED CT) 06/21/2018 Drug adhesive Unknown Unknown [place] [facility] Allergy/416 tape/[id number] Hospital 040027(SNOM (RXNORM) Repository ED CT) 06/21/2018 Drug pregabalin/F006 Unknown Unknown [place] [facility] Allergy/416 175409(RXNORM) Hospital 440927(SNOM Repository ED CT) 06/15/2018 Drug promethazine/F0 Unknown Unknown [place] [facility] Allergy/416 23556781(RXNORM Hospital 502533(SNOM ) Repository ED CT) 06/14/2018 Drug No Known Unknown [place] [facility] Allergy/416 Allergies/F0019 Hospital 233288(SNOM 98516(RXNORM) Repository ED CT) ENCOUNTERS ENCOUNTERS ADMIT/DISCHARGE ACCOUNT NUMBER ADMITTING ENCOUNTER LOCATION SOURCE CLASS 07/06/2018 [id number] Ambulatory [facility] ding:LABSPEC Repository 06/21/2018 [id number] Ambulatory [facility] ding:PSN Repository 06/21/2018/06/21/19 [id number] Riddhi Pérez [place] ding:PCURoom Repository : [id number]: 1 06/21/2018 [id number] Riddhi Pérez BMSBuilding: [place] BMS.[facility] Repository 06/16/2018 [id number] Ambulatory [facility] ding:CVS Repository 06/16/2018 [id number] Ambulatory BMSBuilding: [place] [facility] Repository 06/15/2018 [id number] Ambulatory BMSBuilding: [place] BMS.[facility] Repository 06/14/2018/06/15/19 [id number] Emergency [address] ding:ED Repository 09/19/2017/09/20/19 [id number] Emergency BBuilding:ER [address] Repository 09/07/2017 [id number] Ambulatory [facility] ding:LAB.FUT Repository URE 09/03/2017 [id number] Ambulatory [facility] ding:CT Repository PAYERS PAYERS ENCOUNTER GUARANTOR PAYER SUBSCRIBER SOURCE 07/06/2018 DANIELLE Primary XOCHITL LARONYERDOB: [place] [id number] Insurance:[employer]AREPol [id number] [facility] JEET icy Number: [place], [place] [id number] Repository [address]Rnm: (330) Date:6464-74-29EF [phone] () [address] [address]WZ: 07/06/2018 Secondary NOT GIVENUNK [place] Insurance:SELF PAY [facility] Number: Effective Repository Date:2018-07-06 06/21/2018 DANIELLE Primary XOCHITL TROYERDOB: [place] [id number] Insurance:[employer]ULTCAREPol [id number] [facility] JEET icy Number: [place], [place] [id number] Repository [address]Zrc: (330) Date:5657-41-15IC [phone] () [address] [address]GC: 06/21/2018 Secondary NOT GIVENUNK [place] Insurance:SELF PAY [facility] Number: Effective Repository Date:2018-06-17 06/21/2018 DANIELLE Primary XOCHITL TROYERDOB: [place] [id number] Insurance:[employer]ULTCAREPol [id number] Community JEET icy Number: [place], [place] [id number] Repository [address]Uwi: (330) Date:3395-60-32LT [phone] () [place], [place] [address]RC: 06/21/2018 Secondary NOT GIVENUNK [place] Insurance:SELF PAY [facility] Number: Effective Repository Date:2018-06-21 06/21/2018 DANIELLE Primary XOCHITL TROYERDOB: [place] [id number] Insurance:[employer]TCAREPol [id number] Community JEET icy Number: [place], [place] [id number] Repository [address]Gkw: (330) Date:4180-27-96MC [phone] () [address] [address]DR: 06/21/2018 Secondary NOT GIVENUNK [place] Insurance:SELF PAY [facility] Number: Effective Repository Date:2018-06-21 06/16/2018 DANIELLE Primary XOCHITL LARRYYERDOB: [place] [id number] Insurance:[employer]TCAREPol [id number] Community JEET icy Number: [place], [place] [id number] Repository [address]Lke: (330) Date:2645-05-69DZ [phone] () [address] [address]PD: 06/16/2018 Secondary NOT GIVENUNK [place] Insurance:SELF PAY [facility] Number: Effective Repository Date:2018-06-15 06/16/2018 DANIELLE Primary XOCHITL LARRYYERDOB: [place] [id number] Insurance:[employer]AREPol [id number] Community JEET icy Number: [place], [place] [id number] Repository [address]Whc: (330) Date:1188-93-55TD [phone] () [address] [address]RM: 06/16/2018 Secondary NOT GIVENUNK [place] Insurance:SELF PAY [facility] Number: Effective Repository Date:2018-06-16 06/15/2018 DANIELLE Primary XOCHITL TROYERDOB: [place] [id number] Insurance:[employer]AREPol [id number] Community JEET icy Number: [place], [place] [id number] Repository [address]Vcl: 330) Date:4404-38-60ZZ [phone] () [address] [place] [address]MP: 06/15/2018 Secondary NOT GIVENUNK [place] Insurance:SELF PAY [facility] Number: Effective Repository Date:2018-06-15 06/14/2018 Xochitl [id number] Primary XOCHITL TROYERDOB: [place] Jeet Insurance:[id number] Number: Hospital [address]Oxo: 330 [id number] Repository [phone] () Date:2713-17-66DN [address] [place] [address]VI: 06/14/2018 Secondary NOT GIVENUNK [place] Insurance:SELF PAY [facility] Number: Effective Repository Date:2018-06-14 09/19/2017 DRE Andrade Primary XOCHITL A [facility] TROYERDOB: Insurance:[facility] TROYERDOB: [facility] P00Hdasiw Number: [id number] Repository JEET [id number] [address] [place] [address] Date:2017-09-19 [place], [place] [address]Okd: [id number]: () Name:[facility] [phone] [place] [address] ()Tel: [phone]: [phone] 09/07/2017 Xochitl [id number] Primary XOCHITL TROYERDOB: [id number] Number: [facility] [id number]: 330 [id number] Repository [phone] () Date:[id number] [facility] [address] [place] [id number]: 09/07/2017 Secondary NOT GIVENUNK [place] Insurance:SELF PAY [facility] Number: Effective Repository Date:2017-09-06 09/03/2017 Xochitl [id number] Primary XOCHITL NUNOB: [place] Insurance:[place] [id number] Number: Hospital [id number]: 330 [id number] Repository [phone] () Date:0616-04-24SX [address] [place] [id number]: 09/03/2017 Secondary NOT GIVENUNK [place] Insurance:SELF PAY [facility] Number: Effective Repository Date:2017-08-27
== END ==
PROVIDERS: Family Provider Family Medicine; PCP Family Medicine; Referring Provider Family Medicine; Visit Provider Family Medicine
DX: R82.998 Other abnormal findings in urine (principal); I10 Essential (primary) hypertension; R00.0 Tachycardia, unspecified
CPT/HCPCS: 81050; 82530; 83835

== ENCOUNTER → 2020-05-01 | Outpatient (CLI) | payer OTHER, SELFPAY ==
[2018-06-21 03:55] VITALS: BMI 31.8
== END | disposition home or self-care (01) ==
LOC: LABSPEC 15:44
PROVIDERS: PCP Family Medicine; Referring Provider Family Medicine; Visit Provider Family Medicine
DX: N20.9 Urinary calculus, unspecified (principal)
CPT/HCPCS: 82360

== ENCOUNTER 2021-07-03 17:56 | Outpatient (CLI) | payer OTHER, SELFPAY | END 2021-07-03 23:59 | disposition short-term general hospital (02) | PROVIDERS: PCP Family Medicine; Referring Provider Family Medicine; Visit Provider Family Medicine | DX: U07.1 COVID-19 (principal) | CPT/HCPCS: 87635; U0003; U0005 ==

== ENCOUNTER → 2023-12-03 | Outpatient (CLI) | payer SELFPAY ==
[2023-12-03 11:19] LABS: hCG Titer Quant., Serum 564 mIU/mL (1-3)
== END | disposition home or self-care (01) ==
LOC: MTLAB 07:43
PROVIDERS: PCP Family Medicine; Referring Provider Family Medicine; Visit Provider Family Medicine
DX: N91.2 Amenorrhea, unspecified (principal)
CPT/HCPCS: 36415; 84702

== ENCOUNTER → 2024-04-24 | Outpatient (CLI) | payer SELFPAY ==
[2024-04-24 15:06] LABS: Absolute Lymphocyte Count 3.58 X10^3/uL (0.83-4.51); Absolute Neutrophil Count 5.7 X10^3/uL (2.0-7.7); Basophil# 0.05 X10^3/uL; Basophil% 0.5 % (0-1); Eosinophil# 0.58 X10^3/uL; Eosinophils% 5.4 % (0-5); Hematocrit 40.2 % (37-47); Hemoglobin 12.9 g/dL (12.0-15.0); Lymphocyte # 3.58 X10^3/ul (0.83-4.51); Lymphocyte % 33.4 % (19-41); Mean Corp Hgb Conc 32.1 g/dL (32-36); Mean Corpuscular Hgb 27.8 pg (27.0-32.0); Mean Corpuscular Volume 86.6 fL (81-99); Mean Platelet Vol. 9.6 fl (6.2-12.0); Monocyte# 0.74 X10^3/uL; Monocyte% 6.9 % (0-10); NRBC Flagged by Analyzer 0 % (0-5); Neutrophil # 5.72 X10^3/uL (2.7-7.7); Neutrophil % 53.2 % (47-70); Platelet Count 346 K/mm3 (150-450); RBC Distribution Width CV 16.8 % (11.6-14.6); Red Blood Count 4.64 M/mm3 (4.2-5.4); White Blood Count 10.7 K/mm3 (4.4-11.0)
[2024-04-24 15:31] LABS: AST(SGOT) 14 U/L (15-37); Alanine Aminotransfer ALT/SGPT 22 U/L (13-56); Albumin, Serum 3.7 g/dL (3.2-5.0); Alkaline Phosphatase 81 U/L (45-117); Anion Gap 8 (5-15); BUN 10 mg/dL (7-18); BUN/Creat Ratio 15.6 RATIO (10-20); Calcium,Total 9.2 mg/dL (8.5-10.1); Chloride 103 mmol/L (98-107); Creatinine, Serum 0.64 mg/dL (0.55-1.02); EST Glomerular Filtration Rate 107 mL/min (>60); Est Glom Filt Rate - Afr Amer 129 mL/min (>60); Ferritin 14 ng/mL (8-252); Globulin 3.7 g/dL (2.2-4.2); Glucose 96 mg/dL (74-106); Iron 52 ug/dL (50-170); Potassium 4.1 mmol/L (3.5-5.1); Protein, Total 7.4 g/dL (6.4-8.2); Sodium Level 139 mmol/L (136-145); T4 Free Direct 0.96 ng/dL (0.76-1.46); Thyroid Stim Hormone (TSH) 0.678 uIU/mL (0.358-3.740)
[2024-04-24 15:45] LABS: Syphilis Antibodies Non-reactive
== END | disposition home or self-care (01) ==
LOC: BFHLAB 11:19
PROVIDERS: PCP Family Medicine; Referring Provider Family Medicine; Visit Provider Family Medicine
DX: D64.9 Anemia, unspecified (principal); L65.9 Nonscarring hair loss, unspecified; R53.83 Other fatigue; Z11.3 Encounter for screening for infections with a predominantly sexual mode of transmission
CPT/HCPCS: 36415; 80053; 82728; 83540; 84439; 84443; 85025; 86780

== ENCOUNTER 2024-07-26 06:37 | Emergency (ER) | payer SELFPAY ==
[2024-07-26] VITALS (11 sets, daily range): BP systolic 125–234; BP diastolic 82–161; PULSE 99–165; RESP 18–28; TEMP 36.8–37.9; O2SAT 95–100; BMI 32.5
--- NOTE | 2024-07-26 07:06 | EDS_ITS ---
HPI <Dr. Maxim Whaley DO - Last Filed: 07/26/24 15:57> HPI - GI History of Present Illness Chief Complaint: Nausea/Vomiting/Diarrhea Informant: patient Abdominal Pain/Flank Pain Onset: Yesterday Context: Sudden Onset Timing: Continuous Quality: Sharp Location: Diffuse Worsened by: Nothing Relieved by: Nothing Nausea/Vomiting/Emesis GI Symptom: Positive for Nausea and Vomiting Quality: Positive for Nonbilious; Negative for Blood streaks, Coffee ground or Hematemesis Diarrhea/Melena/Hematochezia GI Symptom: Positive for Diarrhea; Negative for Melena or Hematochezia Associated Symptoms Associated Symptoms: Negative for Dysuria, Frequency or Hematuria LMP: Approximately 2 weeks ago Narrative Narrative: Patient presents with abdominal pain that began yesterday. Patient states it began rather suddenly last evening. Patient states it has been constant. Patient states it is diffuse across her entire abdomen. Patient describes her pain as sharp. Patient states nothing makes it better and nothing makes it worse. Patient admits to some nausea, vomiting, and diarrhea. Patient denies any hematemesis or coffee-ground emesis. Patient denies any melena or hematochezia. Patient denies any urinary complaints. Patient states her last menstrual period was approximately 2 weeks ago. Patient was given fentanyl and Zofran ODT by EMS with no improvement. [facility] <Dr. Maxim Whaley DO - Last Filed: 07/26/24 15:57> [facility] Medical History Marijuana use Recurrent nephrolithiasis GERD (gastroesophageal reflux disease) IBS (irritable bowel syndrome) Anxiety Bipolar disorder PTSD (post-traumatic stress disorder) Tachycardia Madhu de la Tourette syndrome Fibromyalgia Chronic pain syndrome Home Medications ?Medication ?Instructions ?Recorded ?Last Taken ?Type promethazine 25 mg tablet 25 mg PO BID PRN PRN Nausea 06/14/18 06/20/18 History alprazolam 2 mg tablet 1 - 2 mg PO TID PRN PRN anxi ety 07/26/24 Unknown History attack labetalol 100 mg tablet 100 mg PO TID 07/26/24 Unkno wn History tizanidine 4 mg tablet 12 mg PO TID 07/26/24 Unknow n History venlafaxine 150 mg 150 mg PO DAILY 07/26/24 Unk nown History capsule,extended release 24 hr Allergy/AdvReac Type Severity Reaction Status Date / Time adhesive tape AdvReac Unknown Verified 07/26/24 06:38 baclofen AdvReac Unknown Verified 07/26/24 06:38 pregabalin (From Lyrica) AdvReac Unknown Verified 07/26/24 06:38 Family History (Updated 06/15/18 @ 16:48 by Ambar García) Father Hypertension Surgical History H/O abdominoplasty Hx of cholecystectomy H/O bilateral breast reduction surgery History of lithotripsy Social History Smoking Status: Current every day smoker tobacco type: e-cigarettes ROS <Dr. Maxim Whaley, DO - Last Filed: 07/26/24 15:57> ROS ED Constitutional Constitutional ED: Denies chills or fever(s) Eyes Eyes: Denies blurry vision or change in vision ENT ENT ED: Denies rhinorrhea or sore throat Cardiovascular Cardiovascular: Denies chest pain or palpitations Respiratory/Chest Respiratory/Chest: Denies cough or dyspnea Gastrointestinal Gastrointestinal: Reports abdominal pain, diarrhea, nausea and vomiting; Denies melena Genitourinary Genitourinary ED: Denies dysuria or hematuria Musculoskeletal Musculoskeletal: Reports back pain; Denies neck pain Integumentary Reports rash; Denies abscess Neurologic Neurologic: Denies headache(s) or weakness Allergic/Immunologic Allergic/Immunologic ED: Denies mouth swelling or urticaria EXAM <Dr. Maxim Whaley, DO - Last Filed: 07/26/24 15:57> Physical Exam Const Vital Signs: 07/26/24 06:40 07/26/24 09:30 07/26/24 13:00 Temperature 98.2 F Temperature Source Oral Pulse Rate 120 H 150 H 146 H Respiratory Rate 22 H 18 18 Blood Pressure 234/128 H 211/161 H Blood Pressure Mean 163 177 Pulse Ox 100 97 95 Oxygen Delivery Method Room Air 07/26/24 15:00 07/26/24 17:00 07/26/24 18:31 Temperature 100.2 F H Temperature Source Oral Pulse Rate 99 163 H 163 H Respiratory Rate 18 20 H 19 H Blood Pressure 199/142 H 161/121 H 141/110 H Blood Pressure Mean 161 134 120 Pulse Ox 99 95 97 Oxygen Delivery Method Room Air Room Air 07/26/24 18:54 07/26/24 20:01 07/26/24 20:17 Temperature 100.2 F H 99.9 F H 99.9 F H Temperature Source Oral Oral Pulse Rate 165 H 140 H 145 H Respiratory Rate 28 H 22 H 22 H Blood Pressure 141/110 H 125/82 H 125/82 H Blood Pressure Mean 120 96 96 Pulse Ox 98 98 96 Oxygen Delivery Method Room Air Room Air Positive well nourished and well developed Constitutional Narrative: BMI is 32.5 General Appearance ED: well developed and NAD HEENT Reports moist mucous membranes Neck supple and no JVD Resp normal respiratory effort and clear to auscultation bilaterally Cardio regular rhythm Rate: tachycardic GI non-distended Palpation: soft and tender epigastric, LLQ, RLQ, LUQ, RUQ, periumbilical and s uprapubic Extremity full ROM General Extremety ED: Negative for edema or tenderness General Extremity: Negative for edema Neuro CN's II-XII intact bilaterally, moves all extremities and no sensory deficits noted Sensorium / Orientation: alert Motor Exam: strength 5/5 throughout Psych Mood & Affect: anxious Skin Skin Narrative: There is a rash over the back, chest, and abdomen. There are no vesicles or pustules. There are no petechia noted. There is no involvement of the mucous membranes. <Dr. Bradly Morris, DO - Last Filed: 07/26/24 20:55> Physical Exam Const Vital Signs: 07/26/24 06:40 07/26/24 09:30 07/26/24 13:00 Temperature 98.2 F Temperature Source Oral Pulse Rate 120 H 150 H 146 H Respiratory Rate 22 H 18 18 Blood Pressure 234/128 H 211/161 H Blood Pressure Mean 163 177 Pulse Ox 100 97 95 Oxygen Delivery Method Room Air 07/26/24 15:00 07/26/24 17:00 07/26/24 18:31 Temperature 100.2 F H Temperature Source Oral Pulse Rate 99 163 H 163 H Respiratory Rate 18 20 H 19 H Blood Pressure 199/142 H 161/121 H 141/110 H Blood Pressure Mean 161 134 120 Pulse Ox 99 95 97 Oxygen Delivery Method Room Air Room Air 07/26/24 18:54 07/26/24 20:01 07/26/24 20:17 Temperature 100.2 F H 99.9 F H 99.9 F H Temperature Source Oral Oral Pulse Rate 165 H 140 H 145 H Respiratory Rate 28 H 22 H 22 H Blood Pressure 141/110 H 125/82 H 125/82 H Blood Pressure Mean 120 96 96 Pulse Ox 98 98 96 Oxygen Delivery Method Room Air Room Air [facility] <Dr. Maxim Whaley, DO - Last Filed: 07/26/24 15:57> [facility] Narrative Medical decision making narrative: Differential diagnosis includes bowel obstruction, perforation, pancreatitis, peptic ulcer disease, duodenal ulcer, colitis, dehydration, and electrolyte abnormality. CBC will be obtained to assess for leukocytosis and anemia. Comprehensive metabolic profile will be obtained to assess for hepatic function, renal function, and electrolyte abnormality. Lipase will be obtained to assess for pancreatitis. Serum hCG will be obtained to assess for . Urinalysis will be obtained to assess for urinary tract infection and hematuria. CT scan of the abdomen and pelvis will be obtained to assess for bowel obstruction, perforation, colitis, diverticulitis, and pancreatitis. Serum lactate will be obtained to assess for sepsis. Blood cultures will be obtained to assess for sepsis. Urine culture will be obtained to assess for urinary tract infection. Lab Data Attestation: I reviewed the patient's lab results. Lab results narrative: CBC was reviewed. White blood cell was elevated at 3.3. Platelets were slightly elevated at 49. She does comprehensive metabolic profile was reviewed. CO2 was low at 12.0. Anion gap was elevated at 20. It is felt sodium was slightly low at 132. Glucose was 196. Lipase was reviewed and was normal at 240. Serum hCG was reviewed and was negative. Urinalysis was reviewed. Leukocyte esterase was 25. There is 0-5 white blood cells and 0-5 epithelial cells. There is 3+ bacteria. Labs: Laboratory Results - last 24 hr 07/26/24 07/26/24 07/26/24 06:45 07:43 10:00 WBC 30.3 H* RBC 4.81 Hgb 13.6 Hct 40.0 MCV 83.2 MCH 29.8 MCHC 35.4 RDW Std Deviation 39.4 RDW Coeff of Pam 13.1 Plt Count 488 H MPV 10.3 Immature Gran % (Auto) 1.100 H Neut % (Auto) 81.8 H Lymph % (Auto) 9.3 L Calloway % (Auto) 7.4 Eos % (Auto) 0.0 Baso % (Auto) 0.4 Absolute Neuts (auto) 24.8 H Absolute Lymphs (auto) 2.81 Nucleated RBC % 0 Differential Comment COMMENT Diff Path Review May foll Platelet Estimate PT INR APTT Sodium 132 L Potassium 4.5 Chloride 100 Carbon Dioxide 12.0 L Anion Gap 20 H BUN 13 Creatinine 0.83 Estim Creat Clear Calc 104.23 Est GFR (MDRD) Af Amer 96 Est GFR (MDRD) Non-Af 79 BUN/Creatinine Ratio 15.7 Glucose 196 H Lactic Acid 1.3 Calcium 8.5 Total Bilirubin 1.00 Direct Bilirubin AST 46 H ALT 38 Alkaline Phosphatase 70 Total Protein 8.0 Albumin 3.2 Globulin 4.8 H Albumin/Globulin Ratio 0.7 L Lipase 240 Serum , Qual NEGATIVE Urine Color Yellow Urine Clarity Clear Urine pH 6.0 Ur Specific [place] 1.025 Urine Protein 100 H Urine Glucose (UA) Normal Urine Ketones 150 A* Urine Occult Blood 25 H Urine Nitrite Negative Urine Bilirubin Negative Urine Urobilinogen Normal Ur Leukocyte Esterase 25 H Urine RBC 0-5 SEEN Urine WBC 0-5 SEEN Ur Squamous Epith Cells 0-5 SEEN Urine Bacteria 3+ Hyaline Casts 0-5 SEEN Urine Mucus RARE 07/26/24 18:50 WBC 33.6 H* RBC 5.18 Hgb 15.7 H Hct 42.7 MCV 82.4 MCH 30.3 MCHC 36.8 H RDW Std Deviation 40.3 RDW Coeff of Pam 13.8 Plt Count 515 H MPV 9.2 Immature Gran % (Auto) 0.800 Neut % (Auto) 68.0 Lymph % (Auto) 8.0 L Calloway % (Auto) 7.6 Eos % (Auto) 15.3 H Baso % (Auto) 0.3 Absolute Neuts (auto) 22.9 H Absolute Lymphs (auto) 2.68 Nucleated RBC % 0 Differential Comment Diff Path Review Platelet Estimate MOD INC PT 13.0 INR 1.0 APTT 27.1 Sodium 135 L Potassium 3.8 Chloride 106 Carbon Dioxide 15.0 L Anion Gap 13 BUN 11 Creatinine 0.80 Estim Creat Clear Calc 108.14 Est GFR (MDRD) Af Amer 100 Est GFR (MDRD) Non-Af 83 BUN/Creatinine Ratio 13.8 Glucose 185 H Lactic Acid 0.3 L Calcium 7.9 L Total Bilirubin 0.90 Direct Bilirubin 0.15 AST 66 H ALT 41 Alkaline Phosphatase 62 Total Protein 7.7 Albumin 3.0 L Globulin 4.7 H Albumin/Globulin Ratio Lipase 170 Serum , Qual Urine Color Urine Clarity Urine pH Ur Specific [place] Urine Protein Urine Glucose (UA) Urine Ketones Urine Occult Blood Urine Nitrite Urine Bilirubin Urine Urobilinogen Ur Leukocyte Esterase Urine RBC Urine WBC Ur Squamous Epith Cells Urine Bacteria Hyaline Casts Urine Mucus ABG Data ABG results: ABG 07/26/24 19:11 Specimen Type ART Sample Site R Radial pH 7.45 Bicarbonate Actual 16.3 L Total CO2 17 Base Excess -8 L O2 Saturation 97 ABG pCO2 23.6 L ABG pO2 87 Marlon Test Positive O2 Delivery Device Room Air Vent Mode Not entered Radiography Diagnostic Testing: Clinical Impression(s) from Imaging Studies Abdomen/Pelvis CT 07/26/24 07:21 IMPRESSION: 1. Oylwh-lz-gywomonp sized abdominal fluid collection, as described. This process may be related to inflammatory bowel disease, bile leak, or even inflammation of the adjacent pancreatic head, but the appearance is nonspecific; recommend clinical and laboratory correlation. 2. Prior cholecystectomy. 3. Hepatomegaly. One or more dose reduction techniques were used (e.g., Automated exposure cont rol, adjustment of the mA and/or kV according to patient size, use of iterative reconstruction technique). Reading Location: [address] [facility] X-Ray 07/26/24 14:25 IMPRESSION: A nasogastric tube is seen, with tip projecting at the mid stomach. Right upper quadrant abdominal surgical clips are seen. No acute process is evident on this limited examination. Reading Location: [address] scan of the abdomen and pelvis was obtained. There is a small to moderate- sized abdominal fluid collection extending from the lateral inferior tip of the liver past and adjacent to the pancreatic head to the left of the mesentery. This could be related to inflammatory bowel disease, bile leak, or inflammation of the pancreatic head. This was interpreted by the radiologist and was also independently reviewed by myself. Treatment and Re-Evaluation :: Patient was given IV fluids, morphine, Benadryl, and Zofran initially. Patient was given a repeat dose of morphine and Phenergan. Patient was given a dose of Zosyn. Patient was advised of her findings. Case was discussed with Dr. Connor. She stated that the fluid appears to go into the retroperitoneal space. She stated that this would require treatment that cannot be performed here. She recommended transferring the patient. Patient initially requested to go to [facility]. Case was discussed with Dr. Harmon at [facility]. He did not feel this was a surgical problem. He felt that this was most likely pancreatitis even though the lipase was normal. He recommended medical admission. Transfer line stated that they did not have any medical beds readily available. Meanwhile, patient changed her mind and requested to go to a [facility] facility because she has medical coverage for [facility] facilities. They requested [facility]. Case was discussed with Dr. Hinojosa, general surgeon at [facility]. She felt that this was too complicated of a case and recommended [facility]. Case was discussed with Dr. Obrien she accepted the patient but stated that it would probably be at least 12 hours before the patient could be transferred there. Care of the patient will be turned over to the oncoming physician pending transfer versus admission here while awaiting transfer. <Dr. Bradly Morris, DO - Last Filed: 07/26/24 20:55> [facility] Narrative Medical decision making narrative: Differential diagnosis includes bowel obstruction, perforation, pancreatitis, peptic ulcer disease, duodenal ulcer, colitis, dehydration, and electrolyte abnormality. CBC will be obtained to assess for leukocytosis and anemia. Comprehensive metabolic profile will be obtained to assess for hepatic function, renal function, and electrolyte abnormality. Lipase will be obtained to assess for pancreatitis. Serum hCG will be obtained to assess for . Urinalysis will be obtained to assess for urinary tract infection and hematuria. CT scan of the abdomen and pelvis will be obtained to assess for bowel obstruction, perforation, colitis, diverticulitis, and pancreatitis. Serum lactate will be obtained to assess for sepsis. Blood cultures will be obtained to assess for sepsis. Urine culture will be obtained to assess for urinary tract infection. Update 2052 hrs.: Nursing came and alerted me that the patient's heart rate was 165 bpm that she looked acutely ill. I went to reexamine the patient and she is not having any shortness of breath. She appears quite anxious and is requesting more pain medication. Patient received additional pain medication and exertion to anxiety. I learned that the patient is taking labetalol 100 mg every 8 hours and has not had any today. Therefore labetalol was ordered. I repeated labs showing a white count of 33.6 hemoglobin 15.7 platelet count of 515. Coags were obtained and were normal. An ABG shows a pH of 7.45 HCO3 16.3 pCO2 23.6 PaO2 of 87. Sodium 135 lactic acid 0.3. Glucose 185. EKG shows a sinus tachycardia rate of 164. Patient's heart rate came down to around 140s she received a second 10 mg dose of labetalol continued IV fluids. Will continue to monitor the patient. I am informed that she has transportation arriving in about 1-1/2 hours. Lab Data Labs: Laboratory Results - last 24 hr 07/26/24 07/26/24 07/26/24 06:45 07:43 10:00 WBC 30.3 H* RBC 4.81 Hgb 13.6 Hct 40.0 MCV 83.2 MCH 29.8 MCHC 35.4 RDW Std Deviation 39.4 RDW Coeff of Pam 13.1 Plt Count 488 H MPV 10.3 Immature Gran % (Auto) 1.100 H Neut % (Auto) 81.8 H Lymph % (Auto) 9.3 L Calloway % (Auto) 7.4 Eos % (Auto) 0.0 Baso % (Auto) 0.4 Absolute Neuts (auto) 24.8 H Absolute Lymphs (auto) 2.81 Nucleated RBC % 0 Differential Comment COMMENT Diff Path Review May foll Platelet Estimate PT INR APTT Sodium 132 L Potassium 4.5 Chloride 100 Carbon Dioxide 12.0 L Anion Gap 20 H BUN 13 Creatinine 0.83 Estim Creat Clear Calc 104.23 Est GFR (MDRD) Af Amer 96 Est GFR (MDRD) Non-Af 79 BUN/Creatinine Ratio 15.7 Glucose 196 H Lactic Acid 1.3 Calcium 8.5 Total Bilirubin 1.00 Direct Bilirubin AST 46 H ALT 38 Alkaline Phosphatase 70 Total Protein 8.0 Albumin 3.2 Globulin 4.8 H Albumin/Globulin Ratio 0.7 L Lipase 240 Serum , Qual NEGATIVE Urine Color Yellow Urine Clarity Clear Urine pH 6.0 Ur Specific [place] 1.025 Urine Protein 100 H Urine Glucose (UA) Normal Urine Ketones 150 A* Urine Occult Blood 25 H Urine Nitrite Negative Urine Bilirubin Negative Urine Urobilinogen Normal Ur Leukocyte Esterase 25 H Urine RBC 0-5 SEEN Urine WBC 0-5 SEEN Ur Squamous Epith Cells 0-5 SEEN Urine Bacteria 3+ Hyaline Casts 0-5 SEEN Urine Mucus RARE 07/26/24 18:50 WBC 33.6 H* RBC 5.18 Hgb 15.7 H Hct 42.7 MCV 82.4 MCH 30.3 MCHC 36.8 H RDW Std Deviation 40.3 RDW Coeff of Pam 13.8 Plt Count 515 H MPV 9.2 Immature Gran % (Auto) 0.800 Neut % (Auto) 68.0 Lymph % (Auto) 8.0 L Calloway % (Auto) 7.6 Eos % (Auto) 15.3 H Baso % (Auto) 0.3 Absolute Neuts (auto) 22.9 H Absolute Lymphs (auto) 2.68 Nucleated RBC % 0 Differential Comment Diff Path Review Platelet Estimate MOD INC PT 13.0 INR 1.0 APTT 27.1 Sodium 135 L Potassium 3.8 Chloride 106 Carbon Dioxide 15.0 L Anion Gap 13 BUN 11 Creatinine 0.80 Estim Creat Clear Calc 108.14 Est GFR (MDRD) Af Amer 100 Est GFR (MDRD) Non-Af 83 BUN/Creatinine Ratio 13.8 Glucose 185 H Lactic Acid 0.3 L Calcium 7.9 L Total Bilirubin 0.90 Direct Bilirubin 0.15 AST 66 H ALT 41 Alkaline Phosphatase 62 Total Protein 7.7 Albumin 3.0 L Globulin 4.7 H Albumin/Globulin Ratio Lipase 170 Serum , Qual Urine Color Urine Clarity Urine pH Ur Specific [place] Urine Protein Urine Glucose (UA) Urine Ketones Urine Occult Blood Urine Nitrite Urine Bilirubin Urine Urobilinogen Ur Leukocyte Esterase Urine RBC Urine WBC Ur Squamous Epith Cells Urine Bacteria Hyaline Casts Urine Mucus ABG Data ABG results: ABG 07/26/24 19:11 Specimen Type ART Sample Site R Radial pH 7.45 Bicarbonate Actual 16.3 L Total CO2 17 Base Excess -8 L O2 Saturation 97 ABG pCO2 23.6 L ABG pO2 87 Marlon Test Positive O2 Delivery Device Room Air Vent Mode Not entered Radiography Diagnostic Testing: Clinical Impression(s) from Imaging Studies Abdomen/Pelvis CT 07/26/24 07:21 IMPRESSION: 1. Hdsqf-gh-adfiopyc sized abdominal fluid collection, as described. This process may be related to inflammatory bowel disease, bile leak, or even inflammation of the adjacent pancreatic head, but the appearance is nonspecific; recommend clinical and laboratory correlation. 2. Prior cholecystectomy. 3. Hepatomegaly. One or more dose reduction techniques were used (e.g., Automated exposure control, adjustment of the mA and/or kV according to patient size, use of iterative reconstruction technique). Reading Location: [address] [facility] X-Ray 07/26/24 14:25 IMPRESSION: A nasogastric tube is seen, with tip projecting at the mid stomach. Right upper quadrant abdominal surgical clips are seen. No acute process is evident on this limited examination. Reading Location: [address] Discharge Plan Triage Chief Complaint: Nausea/Vomiting/Diarrhea ED Provider: Maxim Whaley Dx/Rx/DC Orders Clinical Impression: Abdominal pain, Elevated blood pressure reading without diagnosis of hypertension, Tachycardia, Leukocytosis Prescriptions: No Action promethazine 25 MG tablet 25 mg PO BID PRN PRN (Reason: Nausea) labetalol 100 mg tablet 100 mg PO TID tizanidine 4 mg tablet 12 mg PO TID alprazolam 2 mg tablet 1 - 2 mg PO TID PRN PRN (Reason: anxiety attack) venlafaxine 150 mg capsule,extended release 24hr 150 mg PO DAILY Primary Care Provider: Rodo Macario Referrals: Rodo Macario DO [Primary Care Provider] - Print Language: Kinyarwanda
--- NOTE | 2024-07-26 07:21 | CT_ITS ---
PROCEDURE: ABDOMEN/PELVIS W IV CONT ONLY REASON FOR EXAM: Abdominal pain. TECHNIQUE: Abdomen and pelvis CT with intravenous contrast. COMPARISON: None. FINDINGS: Lung bases: Clear. A small to moderate amount of free fluid is seen within the abdomen, extending from the lateral inferior tip of the liver, past and adjacent to the pancreatic head, to the left mesentery, inferiorly to the right lower quadrant of the abdomen. No free or loculated gas is seen. No small bowel dilation is noted. Liver: Hepatomegaly, but no focal process is seen.. Gallbladder: Previous cholecystectomy. Spleen: Unremarkable. Pancreas: No focal process is seen. Normal-size. Adrenals: Unremarkable. Kidneys: Unremarkable. Bladder: Unremarkable. Reproductive Organs: Unremarkable. No evidence of appendicitis. Lymph nodes: No suspicious lymph node enlargement. Vasculature: Major vascular structures are unremarkable. No acute osseous process is seen. CT/Abdomen/Pelvis W IV Cont ONLY IMPRESSION: 1. Vxcpu-wk-ssxrmain sized abdominal fluid collection, as described. This proc ess may be related to inflammatory bowel disease, bile leak, or even inflammation of the adjacent pancreatic head, but the appear ance is nonspecific; recommend clinical and laboratory correlation. 2. Prior cholecystectomy. 3. Hepatomegaly. One or more dose reduction techniques were used (e.g., Automated exposure contr ol, adjustment of the mA and/or kV according to patient size, use of iterative reconstruction technique). Reading Location: [address]
[2024-07-26 07:37] LABS: Absolute Lymphocyte Count 2.81 X10^3/uL (0.83-4.51); Absolute Neutrophil Count 24.8 X10^3/uL (2.0-7.7); Basophil# 0.12 X10^3/uL; Basophil% 0.4 % (0-1); Eosinophil# 0.01 X10^3/uL; Lymphocyte # 2.81 X10^3/ul (0.83-4.51); Lymphocyte % 9.3 % (19-41); Mean Corpuscular Volume 83.2 fL (81-99); Mean Platelet Vol. 10.3 fl (6.2-12.0); Monocyte# 2.23 X10^3/uL; Monocyte% 7.4 % (0-10); NRBC Flagged by Analyzer 0 % (0-5); Neutrophil # 24.78 X10^3/uL (2.7-7.7); Neutrophil % 81.8 % (47-70); POSITIVE COUNT YES; POSITIVE DIFFERENTIAL YES; Platelet Count 488 K/mm3 (150-450); RBC Distribution Width CV 13.1 % (11.6-14.6); RBC Distribution Width SD 39.4 fl (35.1-43.9); Red Blood Count 4.81 M/mm3 (4.2-5.4)
[2024-07-26] MEDS: 0.9% Normal Saline (1000mL) 1,000 ML 999 ML IV ×2 (07:38→18:47)
[2024-07-26] MEDS: Ondansetron 4 MG/2 ML Vial IV ×2 (07:38→23:27)
[2024-07-26] MEDS: Morphine 4 MG/ML Syringe IV ×2 (07:38→10:46)
[2024-07-26] MEDS: DiphenhydrAMINE 50 MG/ML Syringe 25 MG IV (07:40)
--- NOTE | 2024-07-26 07:56 | ED.RN ---
WBC 30.3 DR OTTO
[2024-07-26 08:00] LABS: Internal QC Validated? YES +Cl - CLEAR BKGD; Pregnancy, Serum, hCG Quali. NEGATIVE Negative; Record Kit Lot#, Serum Preg. 856586
[2024-07-26 08:01] LABS: Color, Urine Yellow (Yellow); Glucose, Dipstick Normal (Normal); Leukocyte Esterase-Dipstick 25 /ul (Negative); Nitrite-Dipstick Negative (Negative); Occult Blood-Urine 25 /ul (Negative); Protein-Dipstick 100 mg/dl (Negative); Specific Gravity, Urine 1.025 (1.002-1.030); Urine Bilirubin Dipstick Negative (Negative); Urine Clarity Clear (Clear); Urine Urobilinogen Normal (Normal)
[2024-07-26 08:03] LABS: Ketone-Dipstick 150 mg/dl (Negative)
[2024-07-26 08:10] LABS: Bacteria 3+ /hpf (None Seen); Hyaline Cast 0-5 SEEN /lpf (0-5); Mucous, Urine RARE /hpf (<or=2+); Red Blood Cells-Urine 0-5 SEEN /hpf (0-5); Squamous Epithelial Cells - UA 0-5 SEEN /hpf (5-10); White Blood Cells 0-5 SEEN /hpf (0-5)
[2024-07-26 08:40] LABS: Hemoglobin 13.6 g/dL (12.0-15.0); White Blood Count 30.3 K/mm3 (4.4-11.0)
[2024-07-26 08:41] LABS: Mean Corpuscular Hgb 29.8 pg (27.0-32.0)
[2024-07-26 08:42] LABS: Differential Indicated SCAN CRITERIA MET; Mean Corp Hgb Conc 35.4 g/dL (32-36)
[2024-07-26 09:00] LABS: ALB/GLOB Ratio 0.7 RATIO (0.9-2.4); Albumin, Serum 3.2 g/dL (3.2-5.0); Alkaline Phosphatase 70 U/L (45-117); BUN 13 mg/dL (7-18); BUN/Creat Ratio 15.7 RATIO (10-20); Chloride 100 mmol/L (98-107); Estimated Creatinine Clearance 104.23 ml/min; Globulin 4.8 g/dL (2.2-4.2); Lipase 240 U/L (73-393); Sodium Level 132 mmol/L (136-145)
[2024-07-26 09:54] LABS: AST(SGOT) 46 U/L (15-37); Alanine Aminotransfer ALT/SGPT 38 U/L (13-56); Calcium,Total 8.5 mg/dL (8.5-10.1); Creatinine, Serum 0.83 mg/dL (0.55-1.02); EST Glomerular Filtration Rate 79 mL/min (>60); Est Glom Filt Rate - Afr Amer 96 mL/min (>60); Glucose 196 mg/dL (74-106); Potassium 4.5 mmol/L (3.5-5.1)
[2024-07-26 10:04] LABS: Anion Gap 20 (5-15)
[2024-07-26] MEDS: 0.9% Normal Saline (1000mL) 1,000 ML 1000 ML IV (10:44)
[2024-07-26] MEDS: Piperacil/Tazobactam 4.5 GM in 0.9% Normal Saline (100mL MB+) 100 ML IV (10:45)
--- NOTE | 2024-07-26 10:53 | ED.RN ---
THIS RN IN TO MEDICATE PT. WHILE IN THE ROOM THIS NURSE OBSERVES PT STICKING HER FINGER DOWN HER THROAT TO VOMIT. PT TOLD TO PLEASE NOT DO THAT
[2024-07-26] MEDS: proMETHazine 25 MG/ML Syringe 6.25 MG IM ×2 (10:57→16:48)
[2024-07-26 11:49] LABS: Lactic Acid 1.3 mmol/L (0.4-1.9)
[2024-07-26] MEDS: HYDROmorphone 1 MG/ML Syringe 0.5 MG IV ×2 (12:17→16:08)
--- NOTE | 2024-07-26 14:25 | RAD_ITS ---
PROCEDURE: ABDOMEN SINGLE VIEW (PORTABLE) REASON FOR EXAM: Tube placement. TECHNIQUE: Limited view of the lower chest and upper abdomen was performed for nasogastric tube placement.. COMPARISON: None available RAD/Abdomen Single View (Portable) IMPRESSION: A nasogastric tube is seen, with tip projecting at the mid stomach. Right upper quadrant abdominal surgical clips are seen. No acute process is evident on this limited examination. Reading Location: [id number]
[2024-07-26] MEDS: Oxymetazoline 0.05% 1 SPRAY SPRAY.BTL 2 SPRAY NASAL (14:32)
--- NOTE | 2024-07-26 17:48 | ED.RN ---
ACCEPTED @ [facility] @ 0789 WAITING FOR BED ASSIGNMENT
--- NOTE | 2024-07-26 18:39 | EKG12_ITS ---
Test Reason : DYSRHYTHMIA Blood Pressure : */* mmHG Vent. Rate : 164 BPM Atrial Rate : 164 BPM P-R Int : 100 ms QRS Dur : 74 ms QT Int : 302 ms P-R-T Axes : 59 -2 46 degrees QTcB Int : 498 ms Critical Test Result: High HR Sinus tachycardia with short [place] Cannot rule out Anterior infarct , age undetermined Abnormal ECG Confirmed by HARINDER CARLOS, IVANNA ([id number]), dictionary editor LIN GILL ([id number]) on 07/28/2024 12:58:54 PM Referred By: Confirmed By: IVANNA PIZANO MD
[2024-07-26] MEDS: Acetaminophen 650 MG Suppository RC (18:47)
[2024-07-26] MEDS: LORazepam 2 MG/ML Syringe 1 MG IV (18:47)
[2024-07-26] MEDS: HYDROmorphone 1 MG/ML Syringe IV ×2 (18:48→21:32)
[2024-07-26 19:05] LABS: Absolute Lymphocyte Count 2.68 X10^3/uL (0.83-4.51); Absolute Neutrophil Count 22.9 X10^3/uL (2.0-7.7); Basophil# 0.11 X10^3/uL; Basophil% 0.3 % (0-1); Eosinophil# 5.13 X10^3/uL; Eosinophils% 15.3 % (0-5); Hematocrit 42.7 % (37-47); Hemoglobin 15.7 g/dL (12.0-15.0); Lymphocyte # 2.68 X10^3/ul (0.83-4.51); Mean Corp Hgb Conc 36.8 g/dL (32-36); Mean Corpuscular Hgb 30.3 pg (27.0-32.0); Mean Corpuscular Volume 82.4 fL (81-99); Mean Platelet Vol. 9.2 fl (6.2-12.0); Monocyte# 2.55 X10^3/uL; Monocyte% 7.6 % (0-10); NRBC Flagged by Analyzer 0 % (0-5); Neutrophil # 22.88 X10^3/uL (2.7-7.7); POSITIVE COUNT YES; POSITIVE DIFFERENTIAL YES; POSITIVE MORPHOLOGY YES; Platelet Count 515 K/mm3 (150-450); RBC Distribution Width CV 13.8 % (11.6-14.6); RBC Distribution Width SD 40.3 fl (35.1-43.9); Red Blood Count 5.18 M/mm3 (4.2-5.4)
[2024-07-26 19:14] LABS: Allen Test Positive; Base Excess -8 mmol/L (-2 to +2); Bicarbonate 16.3 mmol/L (22-26); Blood Gas Specimen Type ART; Mode Not entered; O2 Delivery Device Room Air; PO2 87 mmHG (75-100); SITE R Radial; SO2 97 % (95-99); Total Carbon Dioxide 17 mmol/L; pCO2 23.6 mmHg (35-45); pH 7.45 (7.35-7.45)
[2024-07-26 19:16] LABS: Partial Thromboplast Time 27.1 Seconds (24.1-36.2)
--- NOTE | 2024-07-26 19:31 | ED.RN ---
[facility], spoke with Dayan. eta 3 hours ([id number]). accepting info @ [facility]:
[2024-07-26 19:37] LABS: White Blood Count 33.6 K/mm3 (4.4-11.0)
[2024-07-26 19:42] LABS: Platelet Estimate MOD INC (ADEQ)
[2024-07-26] MEDS: 0.9% Normal Saline (1000mL) 1,000 ML 150 ML IV (20:00)
[2024-07-26 20:17] LABS: Lactic Acid 0.3 mmol/L (0.4-1.9)
[2024-07-26 20:30] LABS: AST(SGOT) 66 U/L (15-37); Alanine Aminotransfer ALT/SGPT 41 U/L (13-56); Alkaline Phosphatase 62 U/L (45-117); Anion Gap 13 (5-15); BUN 11 mg/dL (7-18); BUN/Creat Ratio 13.8 RATIO (10-20); Bilirubin, Direct 0.15 mg/dL (0.00-0.30); Calcium,Total 7.9 mg/dL (8.5-10.1); Chloride 106 mmol/L (98-107); EST Glomerular Filtration Rate 83 mL/min (>60); Est Glom Filt Rate - Afr Amer 100 mL/min (>60); Estimated Creatinine Clearance 108.14 ml/min; Globulin 4.7 g/dL (2.2-4.2); Glucose 185 mg/dL (74-106); Lipase 170 U/L (73-393); Potassium 3.8 mmol/L (3.5-5.1); Protein, Total 7.7 g/dL (6.4-8.2); Sodium Level 135 mmol/L (136-145)
[2024-07-27 15:03] LABS: Pathologist Review Reviewed
== END 2024-07-26 23:37 | disposition short-term general hospital (02) ==
PROVIDERS: Emergency Medicine; Emergency Provider Emergency Medicine; PCP Family Medicine; Visit Provider Emergency Medicine
DX: R10.9 Unspecified abdominal pain (principal); R11.2 Nausea with vomiting, unspecified; R00.0 Tachycardia, unspecified; R03.0 Elevated blood-pressure reading, without diagnosis of hypertension; D72.829 Elevated white blood cell count, unspecified; F41.9 Anxiety disorder, unspecified; Z79.899 Other long term (current) drug therapy; Z90.49 Acquired absence of other specified parts of digestive tract; F17.290 Nicotine dependence, other tobacco product, uncomplicated
CPT/HCPCS: 36415; 36600; 74018; 74177; 80048; 80053; 80076; 81001; 82803; 83605; 83690; 84703; 85025; 85610; 85730; 87040; 87086; 87088; 93005; 96361; 96365; 96366; 96372; 96375; 96376; 99285; Q9967; A4216; J2405

== ENCOUNTER 2024-07-30 20:52 | Emergency (ER) | payer SELFPAY ==
[2024-07-30 20:54] VITALS: BP 194/109; PULSE 112; RESP 18; TEMP 37.2; O2SAT 94; BMI 34.1
--- NOTE | 2024-07-30 21:09 | ED.VIS.GI ---
HPI HPI - GI History of Present Illness Chief Complaint: Nausea/Vomiting Abdominal Pain/Flank Pain Onset: Today Context: Gradual Onset Timing: Continuous Quality: Dull Location: Epigastric Worsened by: Nothing Relieved by: Nothing Nausea/Vomiting/Emesis GI Symptom: Positive for Nausea and Vomiting Quality: Positive for Nonbilious; Negative for Blood streaks, Coffee ground or Hematemesis Diarrhea/Melena/Hematochezia GI Symptom: Negative for Diarrhea, Melena or Hematochezia Associated Symptoms Associated Symptoms: Negative for Dysuria, Frequency or Hematuria Narrative Narrative: Patient presents with abdominal pain, nausea, and vomiting that became worse today. Patient states she was recently diagnosed with pancreatitis. Patient was transferred to [facility] and was discharged yesterday. Patient states her pain is still over the epigastric area. Patient describes it as dull. Patient states she is having some nausea and vomiting. Patient states she is unable to keep anything down. Patient states her emesis is just stomach contents. Patient denies any diarrhea, melena, or hematochezia. Patient denies any urinary complaints. PFSH [facility] Medical History Marijuana use Recurrent nephrolithiasis GERD (gastroesophageal reflux disease) IBS (irritable bowel syndrome) Anxiety Bipolar disorder PTSD (post-traumatic stress disorder) Tachycardia Madhu de la Tourette syndrome Fibromyalgia Chronic pain syndrome Home Medications ?Medication ?Instructions ?Recorded ?Last Taken ?Type promethazine 25 mg tablet 25 mg PO BID PRN PRN Nausea 06/14/18 06/20/18 History alprazolam 2 mg tablet 1 - 2 mg PO TID PRN PRN anxiety 07/26/24 Unknown History attack labetalol 100 mg tablet 100 mg PO TID 07/26/24 Unknown History tizanidine 4 mg tablet 12 mg PO TID 07/26/24 Unknown History venlafaxine 150 mg 150 mg PO DAILY PRN depression 07/26/24 Unknown History capsule,extended release 24 hr hydrocodone-acetaminophen 5-325mg 1 tab PO Q6H PRN PRN Pain 3 days 07/30/24 Unknown Rx 5mg-325mg #10 TABLETS metoclopramide HCl 10 mg tablet 10 mg PO Q6H PRN PRN vomiting #10 07/30/24 Unknown Rx tabs Allergy/AdvReac Type Severity Reaction Status Date / Time adhesive tape AdvReac Unknown Verified 07/30/24 20:53 baclofen AdvReac Unknown Verified 07/30/24 20:53 pregabalin (From Lyrica) AdvReac Unknown Verified 07/30/24 20:53 Family History (Updated 06/15/18 @ 16:48 by Amabr García) Father Hypertension Surgical History H/O abdominoplasty Hx of cholecystectomy H/O bilateral breast reduction surgery History of lithotripsy Social History Smoking Status: Current every day smoker tobacco type: e-cigarettes ROS ROS ED Constitutional Constitutional ED: Denies chills or fever(s) Eyes Eyes: Denies blurry vision or change in vision ENT ENT ED: Denies rhinorrhea or sore throat Cardiovascular Cardiovascular: Denies chest pain or palpitations Respiratory/Chest Respiratory/Chest: Denies cough or dyspnea Gastrointestinal Gastrointestinal: Reports abdominal pain, nausea and vomiting Genitourinary Genitourinary ED: Denies dysuria or hematuria Musculoskeletal Musculoskeletal: Denies back pain or neck pain Integumentary Denies abscess or rash Neurologic Neurologic: Denies headache(s) or weakness Allergic/Immunologic Allergic/Immunologic ED: Denies mouth swelling or urticaria EXAM Physical Exam Const Vital Signs: 07/30/24 20:54 07/30/24 22:59 Temperature 99.0 F Temperature Source Oral Pulse Rate 112 H 107 H Respiratory Rate 18 18 Blood Pressure 194/109 H 156/86 H Blood Pressure Mean 137 109 Pulse Ox 94 100 Oxygen Delivery Method Room Air Room Air Positive well nourished and well developed Constitutional Narrative: BMI is 34.1 General Appearance ED: well developed and NAD HEENT Reports moist mucous membranes Neck supple and no JVD Resp normal respiratory effort and clear to auscultation bilaterally Cardio regular rhythm Rate: tachycardic GI non-distended Palpation: soft and tender epigastric; Negative for guarding or rebound tenderness present Neuro CN's II-XII intact bilaterally, moves all extremities and no sensory deficits noted Sensorium / Orientation: alert Motor Exam: strength 5/5 throughout Psych Mood & Affect: anxious MDM MDM MDM Narrative Medical decision making narrative: Differential diagnosis includes pancreatitis, bowel obstruction, perforation, gastritis, dehydration, and electrolyte abnormality. CBC will be obtained to assess for leukocytosis and anemia. Comprehensive metabolic profile will be obtained to assess for hepatic function, renal function, and electrolyte abnormality. Lipase will be obtained to assess for pancreatitis. Urinalysis will be obtained to assess for urinary tract infection and hematuria. CT scan of the abdomen and pelvis will be obtained to assess for bowel obstruction and perforation. Lab Data Attestation: I reviewed the patient's lab results. Lab results narrative: CBC was reviewed. There is a leukocytosis of 23.6. This is improved from previous result. Hemoglobin was 11.1 and hematocrit was 33.1. This has decreased from previous results. Comprehensive metabolic profile was reviewed. Potassium was low at 3.0. The remainder was essentially within normal limits. Lipase was reviewed and was normal at 39. Urinalysis was reviewed. There is no evidence of urinary tract infection or hematuria. Amylase was reviewed and was normal at 22. Labs: Laboratory Results - last 24 hr 07/30/24 07/30/24 21:01 21:55 WBC 23.6 H RBC 3.83 L Hgb 11.1 L Hct 33.1 L MCV 86.4 MCH 29.0 MCHC 33.5 D RDW Std Deviation 41.1 RDW Coeff of Pam 13.2 Plt Count 430 MPV 9.1 Immature Gran % (Auto) GLOVE FINISHER Neut % (Auto) GLOVE FINISHER Lymph % (Auto) GLOVE FINISHER [place] % (Auto) GLOVE FINISHER Eos % (Auto) GLOVE FINISHER Baso % (Auto) GLOVE FINISHER Absolute Neuts (auto) 16.7 H Absolute Lymphs (auto) 3.06 Total Counted 100 Neutrophils % (Manual) 70 Band Neutrophils % 1 Lymphocytes % (Manual) 13 L Monocytes % (Manual) 10 Basophils % (Manual) 1 Metamyelocytes % 2 H Myelocytes % 2 H Promyelocytes % 1 H Nucleated RBC % 0 Diff Path Review May foll Platelet Estimate A Sodium 138 Potassium 3.0 L Chloride 99 Carbon Dioxide 30.0 Anion Gap 9 BUN 8 Creatinine 0.56 Estim Creat Clear Calc 153.17 Est GFR (MDRD) Af Amer 152 Est GFR (MDRD) Non-Af 125 BUN/Creatinine Ratio 14.4 Glucose 112 H Calcium 9.2 Total Bilirubin 0.40 AST 17 ALT 23 Alkaline Phosphatase 81 Total Protein 7.3 Albumin 2.7 L Globulin 4.6 H Albumin/Globulin Ratio 0.6 L Amylase 22 L Lipase 39 L Urine Color Straw Urine Clarity Clear Urine pH 7.0 Ur Specific [place] 1.005 Urine Protein 15 H Urine Glucose (UA) Normal Urine Ketones Negative Urine Occult Blood Negative Urine Nitrite Negative Urine Bilirubin Negative Urine Urobilinogen Normal Ur Leukocyte Esterase Negative Urine RBC 0 SEEN Urine WBC 0 SEEN Ur Squamous Epith Cells 0 SEEN Urine Bacteria 0 SEEN Urine Mucus 0 SEEN Radiography Diagnostic Testing: Clinical Impression(s) from Imaging Studies Abdomen/Pelvis CT 07/30/24 21:48 IMPRESSION: 1. Acute pancreatitis with worsening free fluid extending from the peripancreatic edema to the right paracolic gutter, consistent with an acute peripancreatic fluid collection. 2. Wall thickening of the duodenum and ascending colon, likely due to reactive changes. Infectious or inflammatory enteritis can also be considered. Reading Location: [facility] CT scan of the abdomen and pelvis was obtained. There is acute pancreatitis with worsening free fluid extending from that. Pancreatic edema to the right paracolic gutter consistent with an acute peripancreatic fluid collection. There is wall thickening of the duodenum and ascending colon. These are likely due to reactive changes. This was interpreted by the radiologist and was also independently reviewed by myself. Treatment and Re-Evaluation :: Patient was given IV fluids, morphine, and Reglan. Patient was given a dose of oral potassium. Patient is able to tolerate this. Patient was given a dose of labetalol. Patient was advised of her findings. Patient is resting comfortably on reevaluation. Patient states her pain is improved. Patient was given prescriptions for [place] and Reglan. Patient was instructed to start with a liquid diet and advance as tolerated. Patient was instructed to follow-up with her primary care physician in 3 to 5 days. Patient was instructed to return if worse in any way. Patient understood and was agreeable with the plan. All questions were answered. Discharge Plan Triage Chief Complaint: Nausea/Vomiting ED Provider: Maxim Whaley Dx/Rx/DC Orders Clinical Impression: Acute pancreatitis, Abdominal pain Instructions: ED Pancreatitis Prescriptions: New hydrocodone-acetaminophen 5-325 mg tablet 1 tab PO Q6H PRN PRN (Reason: Pain) 3 Days Qty: 10 0RF metoclopramide HCl 10 mg tablet 10 mg PO Q6H PRN PRN (Reason: vomiting) Qty: 10 0RF No Action promethazine 25 MG tablet 25 mg PO BID PRN PRN (Reason: Nausea) labetalol 100 mg tablet 100 mg PO TID tizanidine 4 mg tablet 12 mg PO TID alprazolam 2 mg tablet 1 - 2 mg PO TID PRN PRN (Reason: anxiety attack) venlafaxine 150 mg capsule,extended release 24hr 150 mg PO DAILY PRN (Reason: depression) Primary Care Provider: Rodo Macario Referrals: Rodo Macario DO [Primary Care Provider] - 3-5 Days Print Language: Kinyarwanda Disposition Disposition: Home, Self Care
[2024-07-30] MEDS: 0.9% Normal Saline (1000mL) 1,000 ML 1000 ML IV (21:16)
[2024-07-30] MEDS: Morphine 4 MG/ML Syringe IV (21:17)
[2024-07-30] MEDS: Metoclopramide 10 MG/2 ML Vial IV (21:17)
--- NOTE | 2024-07-30 21:48 | CT_ITS ---
PROCEDURE: ABDOMEN/PELVIS W IV CONT ONLY REASON FOR EXAM: Abdominal pain TECHNIQUE: Abdomen and pelvis CT with intravenous contrast. Multiplanar reconstructions were performed. COMPARISON: 07/26/2024 FINDINGS: Lower chest: Unremarkable. Liver: The liver is enlarged measuring 20.6 cm in craniocaudal dimension. Biliary/gallbladder: Prior cholecystectomy. Pancreas: Peripancreatic edema is again noted with worsening free fluid extending into the right pericolic gutter. There is normal pancreatic enhancement. Spleen: Unremarkable. Adrenal glands: Unremarkable. Kidneys: Unremarkable. Gastrointestinal/peritoneum: There is duodenal wall thickening at the C-loop and transverse portion with Bria duodenal fat stranding, also adjacent to the pancreatic head and uncinate process.There are no abnormally dilated loops of bowel.There is worsening free fluid which extends from the peripancreatic inflammation into the right paracolic gutter. The largest portion of the fluid measures 8.7 x 6.4 x 14.3 cm with mild partial rim enhancement. There is also mild wall thickening of the ascending colon, which is in contact with the previously described fluid collection. The appendix is unremarkable. Vascular: Unremarkable. Lymph nodes: No enlarged lymph nodes by CT size criteria. Pelvic organs: Unremarkable. Bladder: Mild degenerative disc disease is present at L5-S1. Bones: Unremarkable. Soft tissues: Unremarkable. CT/Abdomen/Pelvis W IV Cont ONLY IMPRESSION: 1. Acute pancreatitis with worsening free fluid extending from the peripancreat ic edema to the right paracolic gutter, consistent with an acute peripancreatic fluid collection. 2. Wall thickening of the duodenum and ascending colon, likely due to reactive changes. Infectious or inflammatory enteritis can also be considered. Reading [facility]
[2024-07-30 21:55] LABS: Basophil# 0.13 X10^3/uL; Eosinophil# 0.04 X10^3/uL; Hematocrit 33.1 % (37-47); Hemoglobin 11.1 g/dL (12.0-15.0); Mean Corp Hgb Conc 33.5 g/dL (32-36); Mean Corpuscular Volume 86.4 fL (81-99); Mean Platelet Vol. 9.1 fl (6.2-12.0); Monocyte# 1.54 X10^3/uL; NRBC Flagged by Analyzer 0 % (0-5); POSITIVE DIFFERENTIAL YES; Platelet Count 430 K/mm3 (150-450); RBC Distribution Width CV 13.2 % (11.6-14.6); RBC Distribution Width SD 41.1 fl (35.1-43.9); Red Blood Count 3.83 M/mm3 (4.2-5.4); White Blood Count 23.6 K/mm3 (4.4-11.0)
[2024-07-30 21:57] LABS: Differential Indicated SCAN CRITERIA MET
[2024-07-30 22:02] LABS: Bacteria 0 SEEN /hpf (None Seen); Color, Urine Straw (Yellow); Glucose, Dipstick Normal (Normal); Ketone-Dipstick Negative (Negative); Leukocyte Esterase-Dipstick Negative /ul (Negative); Mucous, Urine 0 SEEN /hpf (<or=2+); Nitrite-Dipstick Negative (Negative); Occult Blood-Urine Negative /ul (Negative); Protein-Dipstick 15 mg/dl (Negative); Specific Gravity, Urine 1.005 (1.002-1.030); Squamous Epithelial Cells - UA 0 SEEN /hpf (5-10); Urine Bilirubin Dipstick Negative (Negative); Urine Clarity Clear (Clear); Urine Urobilinogen Normal (Normal); White Blood Cells 0 SEEN /hpf (0-5)
[2024-07-30 22:09] LABS: Red Blood Cells-Urine 0 SEEN /hpf (0-5)
[2024-07-30 22:12] LABS: ALB/GLOB Ratio 0.6 RATIO (0.9-2.4); AST(SGOT) 17 U/L (15-37); Alanine Aminotransfer ALT/SGPT 23 U/L (13-56); Albumin, Serum 2.7 g/dL (3.2-5.0); Alkaline Phosphatase 81 U/L (45-117); Anion Gap 9 (5-15); BUN 8 mg/dL (7-18); BUN/Creat Ratio 14.4 RATIO (10-20); Calcium,Total 9.2 mg/dL (8.5-10.1); Chloride 99 mmol/L (98-107); Creatinine, Serum 0.56 mg/dL (0.55-1.02); EST Glomerular Filtration Rate 125 mL/min (>60); Est Glom Filt Rate - Afr Amer 152 mL/min (>60); Estimated Creatinine Clearance 153.17 ml/min; Globulin 4.6 g/dL (2.2-4.2); Glucose 112 mg/dL (74-106); Lipase 39 U/L (73-393); Protein, Total 7.3 g/dL (6.4-8.2); Sodium Level 138 mmol/L (136-145)
[2024-07-30] MEDS: Potassium Chloride Oral Soln 20 MEQ/15 ML UDC 40 MEQ PO (22:33)
[2024-07-30 22:48] LABS: Basophil 1 % (0-1); Lymphocyte 13 % (19-41); Monocyte 10 % (0-10); Total Cells Counted 100 (MANUAL DIFF)
[2024-07-30 22:50] LABS: Metamyelocyte 2 % (0-1); Myelocyte 2 % (0-0); Neutrophil-Band 1 % (0-5); Neutrophil-Segmented 70 % (47-70); Promyelocyte 1 % (0-0)
[2024-07-30 22:51] LABS: Platelet Estimate A (ADEQ); Scan Smear per Review Criteria MANUAL DIFF
[2024-07-30 22:53] LABS: Absolute Neutrophil Count 16.7 X10^3/uL (2.0-7.7); Neutrophil # 16.73 X10^3/uL (2.7-7.7)
[2024-07-30 22:54] LABS: Absolute Lymphocyte Count 3.06 X10^3/uL (0.83-4.51); Lymphocyte # 3.06 X10^3/ul (0.83-4.51)
[2024-07-30 22:59] VITALS: BP 156/86; PULSE 107; RESP 18; O2SAT 100
[2024-07-30 23:16] LABS: Amylase 22 U/L (25-115)
[2024-07-31 16:09] LABS: Pathologist Review Reviewed
== END 2024-07-30 23:38 | disposition home or self-care (01) ==
PROVIDERS: Emergency Provider Emergency Medicine; PCP Family Medicine; Visit Provider Emergency Medicine
DX: R10.9 Unspecified abdominal pain (principal); K85.90 Acute pancreatitis without necrosis or infection, unspecified; F41.9 Anxiety disorder, unspecified; Z79.899 Other long term (current) drug therapy; Z90.49 Acquired absence of other specified parts of digestive tract; F17.290 Nicotine dependence, other tobacco product, uncomplicated
CPT/HCPCS: 74177; 80053; 81001; 82150; 83690; 85025; 96361; 96374; 96375; 99284; Q9967; A4216

== ENCOUNTER → 2024-09-13 | Outpatient (CLI) | payer SELFPAY ==
[2024-09-13 18:15] LABS: Cholesterol 298 mg/dL (<=200); High Density Lipoprotein 66 mg/dL; Low Density Lipoprotein Calc. 172 mg/dL; Triglycerides 302 mg/dL; Very Low Density Lipoprotein 60 mg/dL (5-40); cholesterol:hdl ratio screen 4.52
== END | disposition home or self-care (01) ==
LOC: BFHLAB 15:50
PROVIDERS: PCP Family Medicine; Visit Provider Family Medicine
DX: E78.1 Pure hyperglyceridemia (principal)
CPT/HCPCS: 36415; 80061